=== PATIENT | female | born 1930 | race Caucasian/White ===

== ENCOUNTER 2016-09-04 08:54 | Outpatient (CLI) | payer OTHER ==
[2015-12-02 12:50] VITALS: BP 121/64
[2016-09-04 09:20] LABS: MEAN CORPUSCULAR HEMOGLOBIN 30.4 pg (28.0-34.0); MEAN CORPUSCULAR VOLUME 95.2 fl (80.0-100.0); MONOCYTES % 6.6 % (0.0-11.0)
[2016-09-04 09:21] LABS: EOSINOPHILS % 5.2 % (0.0-6.8); NEUTROPHILS # 2.4 # k/uL (1.4-7.7)
[2016-09-04 09:54] LABS: eGFR (African) > 60; eGFR (Non-African) > 60
== END 2016-09-04 08:55 ==
LOC: LAB 08:54
PROVIDERS: ATTEND Family Medicine
DX: I10 Essential (primary) hypertension (principal); R73.9 Hyperglycemia, unspecified
CPT/HCPCS: 36415; 80053; 83036; 85025

== ENCOUNTER 2016-09-23 13:41 | Outpatient (CLI) | payer OTHER ==
[2015-12-02 12:50] VITALS: BP 121/64
== END 2016-09-23 13:42 ==
LOC: CARD 13:41
PROVIDERS: ATTEND Internal Medicine Cardiovascular Disease
DX: R07.9 Chest pain, unspecified (principal); I10 Essential (primary) hypertension
CPT/HCPCS: 93005; G0463

== ENCOUNTER 2016-10-28 10:58 | Outpatient (CLI) | payer OTHER ==
[2015-12-02 12:50] VITALS: BP 121/64
== END 2016-10-28 12:38 ==
LOC: RT 10:58
PROVIDERS: ATTEND Family Medicine
DX: R55 Syncope and collapse (principal)
CPT/HCPCS: 93270

== ENCOUNTER 2017-09-07 15:36 | Outpatient (CLI) | payer OTHER ==
[2015-12-02 12:50] VITALS: BP 121/64
[2017-09-07 16:32] LABS: eGFR (African) > 60; eGFR (Non-African) > 60
== END 2017-09-07 15:38 ==
LOC: LAB 15:36
PROVIDERS: ATTEND Family Medicine
DX: I10 Essential (primary) hypertension (principal)
CPT/HCPCS: 36415; 80053

== ENCOUNTER 2017-12-28 17:21 | Inpatient (IN) | payer OTHER ==
[2017-12-28] MEDS ORDERED: ALBUTEROL 90MCG/PUFF INHALER IH PRN (18:58)
[2017-12-28 20:03] VITALS: BMI 21.2
[2017-12-28] MEDS: MAGNESIUM OXIDE 400 MG TABLET PO SCH (20:49)
[2017-12-28] MEDS: PROPRANOLOL HCL 20 MG TABLET PO SCH (20:49)
[2017-12-28] MEDS: rOPINIRole HCL 1 MG TABLET PO SCH (20:49)
[2017-12-28] MEDS: traMADol HCL 50 MG TABLET PO PRN (21:02)
[2017-12-29] MEDS: PANTOPRAZOLE SODIUM 40 MG TABLET PO SCH (06:27)
[2017-12-29] MEDS ORDERED: D3 PO SCH (09:00)
[2017-12-29] MEDS ORDERED: CALCIUM CARB PO SCH (09:00)
[2017-12-29] MEDS: LORATADINE 10 MG TABLET PO SCH (09:27)
[2017-12-29] MEDS: HYDROCHLOROTHIAZIDE 25 MG TABLET PO SCH (09:28)
[2017-12-29] MEDS: MULTIVITAMIN 1 EACH TABLET PO SCH (09:28)
[2017-12-29] MEDS: PROPRANOLOL HCL 20 MG TABLET PO SCH ×2 (09:28→20:21)
[2017-12-29] MEDS: POTASSIUM CHLORIDE 10 MEQ TABLET.ER PO SCH (09:28)
[2017-12-29] MEDS: CYANOCOBALAMIN (VITAMIN B12) 1,000 MCG TABLET PO SCH (09:28)
[2017-12-29] MEDS: MAGNESIUM OXIDE 400 MG TABLET PO SCH ×2 (09:28→20:21)
[2017-12-29] MEDS: CLOPIDOGREL BISULFATE 75 MG TABLET PO SCH (09:28)
--- NOTE | 2017-12-29 10:17 | History and Physical Report ---
History of Present Illnes - History of Present Illness Reason for Visit: post surgery for lumbar spinal stenosis History of Present Illness: Patient [id number] white female who problems with her lower back for a number of years. Patient has gone to physical therapy on several occasions and steroid injections without much improvement. Patient was admitted to [facility] for surgical procedures related to her back pain. Patient had a posterior fusion of L2-3, L3-4. Partial lminectomy L2-5 was also done. Patient did not have any intraoperative or postoperative complications. Patient stated her pain has been fairly well controlled. Patient is not had a bowel movement yet. Agustina ent was subsequently transferred to this institution for further rehab services. 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: Other (KIM, RLS, migraine headaches, ) Gastrointestinal: GERD Musculoskeletal: Osteoarthritis Rheumatologic: Fibromyalgia ENT: Other (macular degeneration, decrease hearing acuity, ) - Past Surgical History Past Surgical History: Appendectomy, Cholecystectomy, Hysterectomy, Other (cataract extreaction, Cervical diskectomy, C5-6 fusion, lumpectomy right breast) - Past Social History Smoke: Quit Occupation: retired Alcohol: Occassional Drugs: None Lives: Alone Domestic Violence: Negative - Health Maintenance Health Maintenance: Cholesterol, Influenza Vaccine, Pneumococcal Vaccine, Mammogram Influenza Vaccine: No Pneumonia Vaccine: Yes (Pneumo 2012; Prevnar -2014) Resuscitation Status: Resusciation Status Resuscitation Status Full Code Review of Systems - Review of Systems Constitutional: Weakness. negative: Fever, Chills Eyes: negative: pain, vision change ENT: negative: Ear Pain, Ear Discharge, Nose Pain, Nose Congestion, Mouth Pain, Mouth Swelling, Throat Swelling Respiratory: Cough (mild), Dry. negative: Shortness of Breath, Hemoptysis, SOB with Excertion, Pleuritic Pain, Wheezing Cardiovascular: negative: Chest Pain, Palpitations, Edema, Light Headedness Gastrointestinal: Constipation. negative: Nausea, Vomiting, Abdominal Pain, Diarrhea, Melena, Hematochezia Genitourinary: negative: Dysuria, Frequency, Incontinence, Hematuria Musculoskeletal: negative: Neck Pain, Shoulder Pain, Arm Pain Skin: negative: Rash, Lesions Neurological: negative: Weakness, Numbness, Incoordination - Medications/Allergies Allergies/Adverse Reactions: Allergies Allergy/AdvReac Type Severity Reaction Status Date / Time garlic Allergy Verified 12/02/15 10:18 Penicillins Allergy Verified 12/02/15 10:18 Home Medications: Home Medications Albuterol Sulfate [Proair HFA] 2 inh IH Q6 PRN 12/28/17 Calcium Carb 500/Vit D 200 [CALTRATE WITH VIT D] 12/28/17 Calcium Carb 600Mg/Vit D-3 400 [Caltrate with Vit D-3] 1 each PO DAILY 12/28/17 Cetirizine HCl [All Day Allergy] 10 mg PO D 12/28/17 Cyanocobalamin (Vitamin B-12) [Vitamin B-12] 1,000 mcg PO D 12/28/17 Diclofenac Potassium 50 mg PO BID 12/28/17 Docusate Sodium [Colace] 100 mg PO DAILY PRN 12/28/17 Fexofenadine/Pseudoephedrine [Tiffany-D 24 Hour Tablet] 1 each PO D 12/28/17 Gabapentin 100 mg PO BID 12/28/17 Ginkgo Biloba 120 mg PO D 12/28/17 Hydrochlorothiazide 25 mg PO D 12/28/17 Magnesium Oxide [Magnesium] 250 mg PO BID 12/28/17 Multivit-Minerals/Folic Acid [One Daily Womens 50 Plus Tab] 0.4 mg PO D 12/28/17 Potassium 99 mg PO BID 12/28/17 Current Inpatient Medications: Current Inpatient Medications Albuterol Sulfate (Ventolin Hfa) puff IH Q6 PRN PRN Reason: Wheezing Clopidogrel Bisulfate (Plavix) 75 mg PO DAILY [facility] Last Admin: 12/29/17 09:28 Dose: 75 mg Cyanocobalamin (Vitamin B-12) 1,000 mcg PO D [facility] Last Admin: 12/29/17 09:28 Dose: 1,000 mcg Docusate Sodium (Colace) 100 mg PO DAILY PRN PRN Reason: Constipation Hydrochlorothiazide (Hydrodiuril) 25 mg PO D [facility] Last Admin: 12/29/17 09:28 Dose: 25 mg Loratadine (Claritin) 10 mg PO DAILY [facility] Last Admin: 12/29/17 09:27 Dose: 10 mg Magnesium Oxide (Mag-Oxide) 400 mg PO BID [facility] Last Admin: 12/29/17 09:28 Dose: 400 mg Miscellaneous (Calcium Carb 600mg/Vit D-3 400 [Caltrate With D-3]) 1 each PO DAILY [facility] Multivitamins (Tab-A-Ursula) 1 each PO DAILY [facility] Last Admin: 12/29/17 09:28 Dose: 1 each Pantoprazole Sodium (Protonix) 40 mg PO DAILY [facility] Last Admin: 12/29/17 06:27 Dose: 40 mg Potassium Chloride (Klor-Con 10) 10 meq PO DAILY [facility] Last Admin: 12/29/17 09:28 Dose: 10 meq Propranolol HCl (Inderal) 20 mg PO BID [facility] Last Admin: 12/29/17 09:28 Dose: 20 mg Ropinirole HCl (Requip) 1 mg PO HS [facility] Last Admin: 12/28/17 20:49 Dose: 1 mg Tramadol HCl (Ultram) 50 mg PO QID PRN PRN Reason: PAIN Last Admin: 12/28/17 21:02 Dose: 50 mg Exam - Exam Vital Signs: Vital Signs (72 hours) 12/28/17 17:35 Temperature 97.7 F Pulse Rate [ 92 H Right] Respiratory 17 Rate Blood Pressure 118/58 [Left Arm] O2 Sat by Pulse 98 Oximetry General: Alert, Oriented to Person, Oriented to Place, Oriented to Time, Cooperative, Moderate distress HEENT: Atraumatic, PERRLA, EOMI, Mouth Mucous membr. moist/[place], Nose Mucous membr. moist/[place] Neck: Normal Range of Motion Carotids: WNL Thyroid: WNL Lungs: Clear to auscultation, Normal air movement, Speaks full Sentences Cardiovascular: Regular rate, Normal S1, Normal S2, No murmurs Abdomen: Soft, No tenderness, No hepatospenomegaly, No masses, Other (helaing surgical incision site to lower back. ), Decreased Bowel Sounds Integumentary: Normal, [place], Warm, Dry Extremities: No clubbing, No cyanosis, No edema, Normal pulses, No tenderness/swelling Neurological: Normal speech, Strength Equal Bilat, Normal tone, Sensation intact, Cranial nerves 3-12 NL, Reflexes 2+. No: Normal gait Psych/Mental Status: Mental status NL, Mood NL, Appropriate Affect, Intact Judgment Assessment/Plan - Assessment/Plan (1) Gait disturbance Status: Acute Current Visit: Yes (2) Essential hypertension Status: Acute Current Visit: Yes (3) Fibromyalgia Status: Acute Current Visit: Yes (4) Obstructive sleep apnea Status: Acute Current Visit: Yes (5) Generalized osteoarthritis Status: Acute Current Visit: Yes VTE Assessment - RISK FACTOR SCORE VTE RISK FACTOR SCORES: AGE OVER 60 YEARS, ANTICIPATED BED CONFINEMENT OR IMMOBILIZATION > 24 HOURS, MAJOR SURGERY/ANESTHESIA TIME > 1 HOUR
[2017-12-29 10:53] LABS: eGFR (Non-African) > 60
[2017-12-29] MEDS ORDERED: ALBUTEROL 90MCG/PUFF INHALER IH PRN (11:09)
[2017-12-29] MEDS: CALCIUM/VIT D 500MG/200IU TABLET PO SCH (13:26)
[2017-12-29] MEDS: traMADol HCL 50 MG TABLET PO PRN (20:21)
[2017-12-29] MEDS: rOPINIRole HCL 1 MG TABLET PO SCH (20:21)
[2017-12-29] MEDS: HYDROXYZINE HCL 25 MG TABLET PO PRN (23:24)
[2017-12-30] MEDS: LORATADINE 10 MG TABLET PO SCH (09:53)
[2017-12-30] MEDS: MAGNESIUM OXIDE 400 MG TABLET PO SCH ×2 (09:53→20:00)
[2017-12-30] MEDS: CYANOCOBALAMIN (VITAMIN B12) 1,000 MCG TABLET PO SCH (09:53)
[2017-12-30] MEDS: PROPRANOLOL HCL 20 MG TABLET PO SCH ×2 (09:53→19:58)
[2017-12-30] MEDS: MULTIVITAMIN 1 EACH TABLET PO SCH (09:53)
[2017-12-30] MEDS: CLOPIDOGREL BISULFATE 75 MG TABLET PO SCH (09:53)
[2017-12-30] MEDS: HYDROCHLOROTHIAZIDE 25 MG TABLET PO SCH (09:54)
[2017-12-30] MEDS: PANTOPRAZOLE SODIUM 40 MG TABLET PO SCH (09:54)
[2017-12-30] MEDS: POTASSIUM CHLORIDE 10 MEQ TABLET.ER PO SCH (09:54)
[2017-12-30] MEDS: CALCIUM/VIT D 500MG/200IU TABLET PO SCH (11:21)
[2017-12-30] MEDS: traMADol HCL 50 MG TABLET PO PRN ×2 (11:46→19:44)
[2017-12-30] MEDS: HYDROXYZINE HCL 25 MG TABLET PO PRN (20:00)
[2017-12-30] MEDS: rOPINIRole HCL 1 MG TABLET PO SCH (20:00)
[2017-12-31] MEDS: traMADol HCL 50 MG TABLET PO PRN ×2 (01:57→17:47)
[2017-12-31 06:38] LABS: BASOPHILS % 0.6 (0.0-1.5); EOSINOPHILS % 8.4 % (0.0-6.8); MEAN CORPUSCULAR HEMOGLOBIN 28.7 pg (28.0-34.0); MEAN CORPUSCULAR VOLUME 91.9 fl (80.0-100.0); MONOCYTES % 5.8 % (0.0-11.0)
[2017-12-31 06:39] LABS: NEUTROPHILS # 3.9 # k/uL (1.4-7.7)
[2017-12-31] MEDS: HYDROCHLOROTHIAZIDE 25 MG TABLET PO SCH (09:16)
[2017-12-31] MEDS: PANTOPRAZOLE SODIUM 40 MG TABLET PO SCH (09:16)
[2017-12-31] MEDS: LORATADINE 10 MG TABLET PO SCH (09:16)
[2017-12-31] MEDS: MAGNESIUM OXIDE 400 MG TABLET PO SCH ×2 (09:16→20:01)
[2017-12-31] MEDS: POTASSIUM CHLORIDE 10 MEQ TABLET.ER PO SCH (09:16)
[2017-12-31] MEDS: CYANOCOBALAMIN (VITAMIN B12) 1,000 MCG TABLET PO SCH (09:16)
[2017-12-31] MEDS: CLOPIDOGREL BISULFATE 75 MG TABLET PO SCH (09:16)
[2017-12-31] MEDS: PROPRANOLOL HCL 20 MG TABLET PO SCH ×2 (09:17→20:01)
[2017-12-31] MEDS: MULTIVITAMIN 1 EACH TABLET PO SCH (09:17)
[2017-12-31] MEDS: CALCIUM/VIT D 500MG/200IU TABLET PO SCH (11:43)
[2017-12-31] MEDS ORDERED: MAGNESIUM CITRATE 296 ML BOTTLE PO ONE (13:32)
--- NOTE | 2017-12-31 13:37 | Inpatient Progress Note ---
Subjective - Required Recertification Statement I anticipate X number of days because-include discharge plan: 18 days - Review of Systems Events since last encounter: Patient states that she does seem to be doing some better. Patient has been participating with physical and occupational therapy. Appetite has been fair. Patient does feel constipated. General: Denies: Chills Cardiovascular: Denies: Chest Pain Objective - Exam Vitals and I&O: Vital Signs Temp 97.6 F 12/31/17 09:00 Pulse 103 H 12/31/17 09:00 Resp 20 12/31/17 09:00 BP 142/51 12/31/17 09:00 Pulse Ox 94 12/31/17 09:00 Intake & Output 12/30/17 12/31/17 12/31/17 23:59 11:59 23:59 Intake Total 1200 580 Output Total 3 Balance 1197 580 Weight 49.442 kg Intake: Oral 1200 580 Output: Urine 3 Other: Voiding Method Toilet Toilet # Voids 1 4 General: Alert, Oriented to Person, Oriented to Place, Oriented to Time, Cooperative Lungs: Clear to auscultation, Normal air movement, Speaks full Sentences, Respiratory Distress. No: Wheezes, Rales, Rhonchi Cardiovascular: Regular rate, Normal S1, Normal S2, No murmurs Abdomen: Normal bowel sounds, Soft, No tenderness, No hepatospenomegaly, No masses Skin: Normal, [place], Warm, Dry - Results Results: Laboratory Results WBC 6.33 K/ul (4.00-12.00) 12/31/17 05:50 RBC 2.87 M/ul (3.90-5.20) L 12/31/17 05:50 Hgb 8.2 g/dL (12.0-16.0) L 12/31/17 05:50 Hct 26.4 % (34.5-46.5) L 12/31/17 05:50 MCV 91.9 fl (80.0-100.0) 12/31/17 05:50 MCH 28.7 pg (28.0-34.0) 12/31/17 05:50 MCHC 31.2 g/dL (30.0-36.0) 12/31/17 05:50 RDW 13.5 % (11.3-14.3) 12/31/17 05:50 Plt Count 457 K/mm3 (130-400) H 12/31/17 05:50 Neut % (Auto) 61.3 % (39.0-79.0) 12/31/17 05:50 Lymph % (Auto) 21.4 % (16.0-50.0) 12/31/17 05:50 [place] % (Auto) 5.8 % (0.0-11.0) 12/31/17 05:50 Eos % (Auto) 8.4 % (0.0-6.8) H 12/31/17 05:50 Baso % (Auto) 0.6 (0.0-1.5) 12/31/17 05:50 Neut # (Auto) 3.9 # k/uL (1.4-7.7) 12/31/17 05:50 Lymph # (Auto) 1.4 # k/uL (0.6-4.0) 12/31/17 05:50 [place] # (Auto) 0.4 # k/uL (0.0-0.9) 12/31/17 05:50 Eos # (Auto) 0.5 # k/uL (0.0-0.6) 12/31/17 05:50 Baso # (Auto) 0.0 # k/uL (0.0-0.5) 12/31/17 05:50 Sodium 134 mmol/L (136-145) L 12/29/17 09:34 Potassium 3.4 mmol/L (3.5-5.1) L 12/29/17 09:34 Chloride 94 mmol/L (98-107) L 12/29/17 09:34 Carbon Dioxide 34 mmol/L (22-30) H 12/29/17 09:34 BUN 20 mg/dL (7-17) H 12/29/17 09:34 Creatinine 0.70 mg/dL (0.52-1.04) 12/29/17 09:34 Estimated Creat Clear 50 12/29/17 09:34 Est GFR ( Amer) > 60 (60-) 12/29/17 09:34 Est GFR (Non-Af Amer) > 60 (60-) 12/29/17 09:34 Glucose 120 mg/dL (74-106) H 12/29/17 09:34 Calcium 8.6 mg/dL (8.4-10.2) 12/29/17 09:34 Total Bilirubin 0.2 mg/dL (0.2-1.3) 12/29/17 09:34 AST 22 U/L (15-46) 12/29/17 09:34 ALT 31 U/L (13-69) 12/29/17 09:34 Alkaline Phosphatase 121 U/L (38-126) 12/29/17 09:34 Total Protein 6.0 g/dL (6.3-8.2) L 12/29/17 09:34 Albumin 3.1 g/dL (3.5-5.0) L 12/29/17 09:34 Assessment/Plan - Assessment/Plan (1) Gait disorder Status: Acute Current Visit: Yes Assessment: continue PT and OT (2) Essential hypertension Status: Acute Current Visit: Yes Assessment: continue home meds (3) Constipation by delayed colonic transit Status: Acute Current Visit: Yes Assessment: Patient encouraged to drink a lot of fluids.
[2017-12-31] MEDS: ENOXAPARIN SODIUM 30 MG/0.3 ML DISP.SYRIN SQ SCH (14:51)
[2017-12-31] MEDS: HYDROXYZINE HCL 25 MG TABLET PO PRN (20:01)
[2017-12-31] MEDS: rOPINIRole HCL 1 MG TABLET PO SCH (20:01)
[2018-01-01] MEDS: PANTOPRAZOLE SODIUM 40 MG TABLET PO SCH (08:16)
[2018-01-01] MEDS: DOCUSATE SODIUM 100 MG CAPSULE PO PRN (08:16)
[2018-01-01] MEDS: traMADol HCL 50 MG TABLET PO PRN ×3 (08:16→21:17)
[2018-01-01] MEDS: POTASSIUM CHLORIDE 10 MEQ TABLET.ER PO SCH (08:16)
[2018-01-01] MEDS: MAGNESIUM OXIDE 400 MG TABLET PO SCH ×2 (08:16→21:14)
[2018-01-01] MEDS: CYANOCOBALAMIN (VITAMIN B12) 1,000 MCG TABLET PO SCH (08:17)
[2018-01-01] MEDS: LORATADINE 10 MG TABLET PO SCH (08:17)
[2018-01-01] MEDS: HYDROCHLOROTHIAZIDE 25 MG TABLET PO SCH (08:17)
[2018-01-01] MEDS: CLOPIDOGREL BISULFATE 75 MG TABLET PO SCH (08:17)
[2018-01-01] MEDS: PROPRANOLOL HCL 20 MG TABLET PO SCH ×2 (08:20→21:17)
[2018-01-01] MEDS: MULTIVITAMIN 1 EACH TABLET PO SCH (08:20)
[2018-01-01] MEDS: CALCIUM/VIT D 500MG/200IU TABLET PO SCH (13:16)
[2018-01-01] MEDS: ENOXAPARIN SODIUM 30 MG/0.3 ML DISP.SYRIN SQ SCH (14:13)
[2018-01-01] MEDS: MAGNESIUM HYDROXIDE 400 MG/5 ML 30ML UDC PO PRN (16:24)
[2018-01-01] MEDS: rOPINIRole HCL 1 MG TABLET PO SCH (21:14)
[2018-01-02] MEDS: traMADol HCL 50 MG TABLET PO PRN (07:29)
[2018-01-02] MEDS: PROPRANOLOL HCL 20 MG TABLET PO SCH ×2 (09:48→20:43)
[2018-01-02] MEDS: MAGNESIUM OXIDE 400 MG TABLET PO SCH ×2 (09:48→20:37)
[2018-01-02] MEDS: LORATADINE 10 MG TABLET PO SCH (09:51)
[2018-01-02] MEDS: CLOPIDOGREL BISULFATE 75 MG TABLET PO SCH (09:51)
[2018-01-02] MEDS: POTASSIUM CHLORIDE 10 MEQ TABLET.ER PO SCH (09:51)
[2018-01-02] MEDS: PANTOPRAZOLE SODIUM 40 MG TABLET PO SCH (09:51)
[2018-01-02] MEDS: MULTIVITAMIN 1 EACH TABLET PO SCH (09:51)
[2018-01-02] MEDS: HYDROCHLOROTHIAZIDE 25 MG TABLET PO SCH (09:51)
[2018-01-02] MEDS: CYANOCOBALAMIN (VITAMIN B12) 1,000 MCG TABLET PO SCH (09:51)
[2018-01-02] MEDS: CALCIUM/VIT D 500MG/200IU TABLET PO SCH (13:30)
[2018-01-02] MEDS: ENOXAPARIN SODIUM 30 MG/0.3 ML DISP.SYRIN SQ SCH (14:15)
[2018-01-02] MEDS: rOPINIRole HCL 1 MG TABLET PO SCH (20:37)
[2018-01-03] MEDS: traMADol HCL 50 MG TABLET PO PRN ×3 (06:29→20:04)
[2018-01-03] MEDS: POTASSIUM CHLORIDE 10 MEQ TABLET.ER PO SCH (09:12)
[2018-01-03] MEDS: LORATADINE 10 MG TABLET PO SCH (09:12)
[2018-01-03] MEDS: HYDROCHLOROTHIAZIDE 25 MG TABLET PO SCH (09:12)
[2018-01-03] MEDS: PANTOPRAZOLE SODIUM 40 MG TABLET PO SCH (09:13)
[2018-01-03] MEDS: MAGNESIUM OXIDE 400 MG TABLET PO SCH ×2 (09:13→20:04)
[2018-01-03] MEDS: MULTIVITAMIN 1 EACH TABLET PO SCH (09:13)
[2018-01-03] MEDS: CYANOCOBALAMIN (VITAMIN B12) 1,000 MCG TABLET PO SCH (09:13)
[2018-01-03] MEDS: CLOPIDOGREL BISULFATE 75 MG TABLET PO SCH (09:13)
[2018-01-03] MEDS: PROPRANOLOL HCL 20 MG TABLET PO SCH ×2 (09:14→20:04)
[2018-01-03] MEDS: CALCIUM/VIT D 500MG/200IU TABLET PO SCH (11:39)
[2018-01-03] MEDS: ENOXAPARIN SODIUM 30 MG/0.3 ML DISP.SYRIN SQ SCH (14:20)
[2018-01-03] MEDS: HYDROXYZINE HCL 25 MG TABLET PO PRN (20:04)
[2018-01-03] MEDS: rOPINIRole HCL 1 MG TABLET PO SCH (20:04)
[2018-01-04] MEDS: traMADol HCL 50 MG TABLET PO PRN ×3 (05:37→21:03)
[2018-01-04] MEDS: HYDROCHLOROTHIAZIDE 25 MG TABLET PO SCH (09:05)
[2018-01-04] MEDS: CYANOCOBALAMIN (VITAMIN B12) 1,000 MCG TABLET PO SCH (09:05)
[2018-01-04] MEDS: POTASSIUM CHLORIDE 10 MEQ TABLET.ER PO SCH (09:05)
[2018-01-04] MEDS: PROPRANOLOL HCL 20 MG TABLET PO SCH ×2 (09:05→21:05)
[2018-01-04] MEDS: CLOPIDOGREL BISULFATE 75 MG TABLET PO SCH (09:05)
[2018-01-04] MEDS: PANTOPRAZOLE SODIUM 40 MG TABLET PO SCH (09:05)
[2018-01-04] MEDS: LORATADINE 10 MG TABLET PO SCH (09:05)
[2018-01-04] MEDS: MULTIVITAMIN 1 EACH TABLET PO SCH (09:05)
[2018-01-04] MEDS: MAGNESIUM OXIDE 400 MG TABLET PO SCH ×2 (09:05→21:04)
[2018-01-04] MEDS: CALCIUM/VIT D 500MG/200IU TABLET PO SCH (12:25)
[2018-01-04] MEDS: ENOXAPARIN SODIUM 30 MG/0.3 ML DISP.SYRIN SQ SCH (13:25)
[2018-01-04] MEDS: ACETAMINOPHEN 500 MG TABLET PO PRN (15:21)
[2018-01-04] MEDS: HYDROXYZINE HCL 25 MG TABLET PO PRN (21:03)
[2018-01-04] MEDS: rOPINIRole HCL 1 MG TABLET PO SCH (21:04)
[2018-01-05] MEDS: LORATADINE 10 MG TABLET PO SCH (09:05)
[2018-01-05] MEDS: MAGNESIUM OXIDE 400 MG TABLET PO SCH ×2 (09:05→20:48)
[2018-01-05] MEDS: CLOPIDOGREL BISULFATE 75 MG TABLET PO SCH (09:05)
[2018-01-05] MEDS: PANTOPRAZOLE SODIUM 40 MG TABLET PO SCH (09:05)
[2018-01-05] MEDS: MULTIVITAMIN 1 EACH TABLET PO SCH (09:05)
[2018-01-05] MEDS: CYANOCOBALAMIN (VITAMIN B12) 1,000 MCG TABLET PO SCH (09:05)
[2018-01-05] MEDS: HYDROCHLOROTHIAZIDE 25 MG TABLET PO SCH (09:05)
[2018-01-05] MEDS: POTASSIUM CHLORIDE 10 MEQ TABLET.ER PO SCH (09:06)
[2018-01-05] MEDS: PROPRANOLOL HCL 20 MG TABLET PO SCH ×2 (09:07→20:48)
[2018-01-05] MEDS: CALCIUM/VIT D 500MG/200IU TABLET PO SCH (12:35)
[2018-01-05] MEDS: ENOXAPARIN SODIUM 30 MG/0.3 ML DISP.SYRIN SQ SCH (14:39)
[2018-01-05] MEDS: traMADol HCL 50 MG TABLET PO PRN (17:52)
[2018-01-05] MEDS: HYDROXYZINE HCL 25 MG TABLET PO PRN (20:48)
[2018-01-05] MEDS: rOPINIRole HCL 1 MG TABLET PO SCH (20:48)
[2018-01-05] MEDS: ACETAMINOPHEN 500 MG TABLET PO PRN (20:48)
[2018-01-06] MEDS: POTASSIUM CHLORIDE 10 MEQ TABLET.ER PO SCH (09:45)
[2018-01-06] MEDS: HYDROCHLOROTHIAZIDE 25 MG TABLET PO SCH (09:45)
[2018-01-06] MEDS: MAGNESIUM OXIDE 400 MG TABLET PO SCH ×2 (09:45→20:29)
[2018-01-06] MEDS: traMADol HCL 50 MG TABLET PO PRN ×2 (09:45→20:33)
[2018-01-06] MEDS: MULTIVITAMIN 1 EACH TABLET PO SCH (09:46)
[2018-01-06] MEDS: PROPRANOLOL HCL 20 MG TABLET PO SCH ×2 (09:46→20:33)
[2018-01-06] MEDS: CLOPIDOGREL BISULFATE 75 MG TABLET PO SCH (09:46)
[2018-01-06] MEDS: PANTOPRAZOLE SODIUM 40 MG TABLET PO SCH (09:46)
[2018-01-06] MEDS: CYANOCOBALAMIN (VITAMIN B12) 1,000 MCG TABLET PO SCH (09:46)
[2018-01-06] MEDS: LORATADINE 10 MG TABLET PO SCH (09:46)
[2018-01-06] MEDS: ENOXAPARIN SODIUM 30 MG/0.3 ML DISP.SYRIN SQ SCH (12:43)
[2018-01-06] MEDS: CALCIUM/VIT D 500MG/200IU TABLET PO SCH (12:43)
[2018-01-06] MEDS: rOPINIRole HCL 1 MG TABLET PO SCH (20:29)
[2018-01-06] MEDS: HYDROXYZINE HCL 25 MG TABLET PO PRN (20:33)
[2018-01-06] MEDS: ACETAMINOPHEN 500 MG TABLET PO PRN (20:33)
--- NOTE | 2018-01-07 08:00 | Inpatient Progress Note ---
Subjective - Required Recertification Statement I anticipate X number of days because-include discharge plan: 10 days - Review of Systems Events since last encounter: Patient seemed to be doing very well. Patient is participating with physical and occupational therapy well. Patient is highly motivated to get better. Appetite has been stable. Patient states she has been having bowel movements without difficulties. Patient denies any nausea vomiting. Pain associated with her josue rgical procedure appeared to be well controlled at this time. Objective - Exam Vitals and I&O: Vital Signs Temp 97.6 F 01/06/18 20:56 Pulse 90 01/06/18 21:00 Resp 16 01/06/18 21:00 BP 129/53 01/06/18 20:56 Pulse Ox 96 01/06/18 20:56 Intake & Output 01/06/18 01/06/18 01/07/18 11:59 23:59 11:59 Intake Total 520 1000 120 Balance 520 1000 120 Intake: Oral 520 1000 120 Other: Voiding Method Toilet Toilet # Voids 2 1 2 General: Alert, Oriented to Person, Oriented to Place, Oriented to Time, Cooperative Neck: Supple, No JVD Lungs: Clear to auscultation, Normal air movement, Speaks full Sentences. No: Rales, Rhonchi Cardiovascular: Regular rate, Normal S1, Normal S2 Abdomen: Normal bowel sounds, Soft, No tenderness Extremities: No clubbing, No cyanosis, No edema Skin: Normal, [place], Warm, Dry, Other (incision site is clean and dry) Psych/Mental Status: Mental status NL, Mood NL, Appropriate Affect - Results Results: Laboratory Results WBC 6.33 K/ul (4.00-12.00) 12/31/17 05:50 RBC 2.87 M/ul (3.90-5.20) L 12/31/17 05:50 Hgb 8.2 g/dL (12.0-16.0) L 12/31/17 05:50 Hct 26.4 % (34.5-46.5) L 12/31/17 05:50 MCV 91.9 fl (80.0-100.0) 12/31/17 05:50 MCH 28.7 pg (28.0-34.0) 12/31/17 05:50 MCHC 31.2 g/dL (30.0-36.0) 12/31/17 05:50 RDW 13.5 % (11.3-14.3) 12/31/17 05:50 Plt Count 457 K/mm3 (130-400) H 12/31/17 05:50 Neut % (Auto) 61.3 % (39.0-79.0) 12/31/17 05:50 Lymph % (Auto) 21.4 % (16.0-50.0) 12/31/17 05:50 [place] % (Auto) 5.8 % (0.0-11.0) 12/31/17 05:50 Eos % (Auto) 8.4 % (0.0-6.8) H 12/31/17 05:50 Baso % (Auto) 0.6 (0.0-1.5) 12/31/17 05:50 Neut # (Auto) 3.9 # k/uL (1.4-7.7) 12/31/17 05:50 Lymph # (Auto) 1.4 # k/uL (0.6-4.0) 12/31/17 05:50 [place] # (Auto) 0.4 # k/uL (0.0-0.9) 12/31/17 05:50 Eos # (Auto) 0.5 # k/uL (0.0-0.6) 12/31/17 05:50 Baso # (Auto) 0.0 # k/uL (0.0-0.5) 12/31/17 05:50 Sodium 134 mmol/L (136-145) L 12/29/17 09:34 Potassium 3.4 mmol/L (3.5-5.1) L 12/29/17 09:34 Chloride 94 mmol/L (98-107) L 12/29/17 09:34 Carbon Dioxide 34 mmol/L (22-30) H 12/29/17 09:34 BUN 20 mg/dL (7-17) H 12/29/17 09:34 Creatinine 0.70 mg/dL (0.52-1.04) 12/29/17 09:34 Estimated Creat Clear 50 12/29/17 09:34 Est GFR ( Amer) > 60 (60-) 12/29/17 09:34 Est GFR (Non-Af Amer) > 60 (60-) 12/29/17 09:34 Glucose 120 mg/dL (74-106) H 12/29/17 09:34 Calcium 8.6 mg/dL (8.4-10.2) 12/29/17 09:34 Total Bilirubin 0.2 mg/dL (0.2-1.3) 12/29/17 09:34 AST 22 U/L (15-46) 12/29/17 09:34 ALT 31 U/L (13-69) 12/29/17 09:34 Alkaline Phosphatase 121 U/L (38-126) 12/29/17 09:34 Total Protein 6.0 g/dL (6.3-8.2) L 12/29/17 09:34 Albumin 3.1 g/dL (3.5-5.0) L 12/29/17 09:34 Assessment/Plan - Assessment/Plan (1) Gait disorder Status: Acute Current Visit: Yes Assessment: improving (2) Essential hypertension Status: Acute Current Visit: Yes Assessment: stable (3) Constipation by delayed colonic transit Status: Acute Current Visit: Yes Assessment: stable
[2018-01-07] MEDS: MULTIVITAMIN 1 EACH TABLET PO SCH (09:08)
[2018-01-07] MEDS: CLOPIDOGREL BISULFATE 75 MG TABLET PO SCH (09:08)
[2018-01-07] MEDS: HYDROCHLOROTHIAZIDE 25 MG TABLET PO SCH (09:08)
[2018-01-07] MEDS: CYANOCOBALAMIN (VITAMIN B12) 1,000 MCG TABLET PO SCH (09:08)
[2018-01-07] MEDS: MAGNESIUM OXIDE 400 MG TABLET PO SCH ×2 (09:08→20:21)
[2018-01-07] MEDS: LORATADINE 10 MG TABLET PO SCH (09:08)
[2018-01-07] MEDS: PANTOPRAZOLE SODIUM 40 MG TABLET PO SCH (09:08)
[2018-01-07] MEDS: PROPRANOLOL HCL 20 MG TABLET PO SCH ×2 (09:09→20:22)
[2018-01-07] MEDS: POTASSIUM CHLORIDE 10 MEQ TABLET.ER PO SCH (09:09)
[2018-01-07] MEDS: CALCIUM/VIT D 500MG/200IU TABLET PO SCH (12:28)
[2018-01-07] MEDS: ENOXAPARIN SODIUM 30 MG/0.3 ML DISP.SYRIN SQ SCH (13:54)
[2018-01-07] MEDS: HYDROXYZINE HCL 25 MG TABLET PO PRN (20:21)
[2018-01-07] MEDS: traMADol HCL 50 MG TABLET PO PRN (20:21)
[2018-01-07] MEDS: rOPINIRole HCL 1 MG TABLET PO SCH (20:21)
[2018-01-08] MEDS: traMADol HCL 50 MG TABLET PO PRN ×2 (03:29→14:28)
[2018-01-08] MEDS: LORATADINE 10 MG TABLET PO SCH (09:37)
[2018-01-08] MEDS: CLOPIDOGREL BISULFATE 75 MG TABLET PO SCH (09:37)
[2018-01-08] MEDS: PANTOPRAZOLE SODIUM 40 MG TABLET PO SCH (09:37)
[2018-01-08] MEDS: CYANOCOBALAMIN (VITAMIN B12) 1,000 MCG TABLET PO SCH (09:37)
[2018-01-08] MEDS: POTASSIUM CHLORIDE 10 MEQ TABLET.ER PO SCH (09:37)
[2018-01-08] MEDS: MAGNESIUM OXIDE 400 MG TABLET PO SCH ×2 (09:37→21:38)
[2018-01-08] MEDS: HYDROCHLOROTHIAZIDE 25 MG TABLET PO SCH (09:37)
[2018-01-08] MEDS: PROPRANOLOL HCL 20 MG TABLET PO SCH ×2 (09:37→21:38)
[2018-01-08] MEDS: MULTIVITAMIN 1 EACH TABLET PO SCH (09:38)
[2018-01-08] MEDS: CALCIUM/VIT D 500MG/200IU TABLET PO SCH (12:28)
[2018-01-08] MEDS: ENOXAPARIN SODIUM 30 MG/0.3 ML DISP.SYRIN SQ SCH (14:26)
[2018-01-08] MEDS: rOPINIRole HCL 1 MG TABLET PO SCH (21:38)
[2018-01-09] MEDS: traMADol HCL 50 MG TABLET PO PRN ×2 (08:48→20:21)
[2018-01-09] MEDS: PROPRANOLOL HCL 20 MG TABLET PO SCH ×2 (08:48→20:22)
[2018-01-09] MEDS: LORATADINE 10 MG TABLET PO SCH (08:48)
[2018-01-09] MEDS: HYDROCHLOROTHIAZIDE 25 MG TABLET PO SCH (08:49)
[2018-01-09] MEDS: POTASSIUM CHLORIDE 10 MEQ TABLET.ER PO SCH (08:49)
[2018-01-09] MEDS: MAGNESIUM OXIDE 400 MG TABLET PO SCH ×2 (08:50→20:22)
[2018-01-09] MEDS: DOCUSATE SODIUM 100 MG CAPSULE PO PRN (08:50)
[2018-01-09] MEDS: CLOPIDOGREL BISULFATE 75 MG TABLET PO SCH (08:50)
[2018-01-09] MEDS: PANTOPRAZOLE SODIUM 40 MG TABLET PO SCH (08:51)
[2018-01-09] MEDS: MULTIVITAMIN 1 EACH TABLET PO SCH (08:51)
[2018-01-09] MEDS: CYANOCOBALAMIN (VITAMIN B12) 1,000 MCG TABLET PO SCH (08:52)
[2018-01-09] MEDS: CALCIUM/VIT D 500MG/200IU TABLET PO SCH (11:54)
[2018-01-09] MEDS: ENOXAPARIN SODIUM 30 MG/0.3 ML DISP.SYRIN SQ SCH (12:47)
[2018-01-09] MEDS: HYDROXYZINE HCL 25 MG TABLET PO PRN (20:21)
[2018-01-09] MEDS: rOPINIRole HCL 1 MG TABLET PO SCH (20:22)
[2018-01-10] MEDS: LORATADINE 10 MG TABLET PO SCH (08:52)
[2018-01-10] MEDS: CYANOCOBALAMIN (VITAMIN B12) 1,000 MCG TABLET PO SCH (08:52)
[2018-01-10] MEDS: CLOPIDOGREL BISULFATE 75 MG TABLET PO SCH (08:52)
[2018-01-10] MEDS: POTASSIUM CHLORIDE 10 MEQ TABLET.ER PO SCH (08:52)
[2018-01-10] MEDS: MULTIVITAMIN 1 EACH TABLET PO SCH (08:52)
[2018-01-10] MEDS: MAGNESIUM OXIDE 400 MG TABLET PO SCH ×2 (08:52→20:32)
[2018-01-10] MEDS: HYDROCHLOROTHIAZIDE 25 MG TABLET PO SCH (08:52)
[2018-01-10] MEDS: PROPRANOLOL HCL 20 MG TABLET PO SCH ×2 (08:52→20:32)
[2018-01-10] MEDS: PANTOPRAZOLE SODIUM 40 MG TABLET PO SCH (08:52)
[2018-01-10] MEDS: traMADol HCL 50 MG TABLET PO PRN ×2 (11:37→20:32)
[2018-01-10] MEDS: CALCIUM/VIT D 500MG/200IU TABLET PO SCH (11:37)
[2018-01-10] MEDS: ENOXAPARIN SODIUM 30 MG/0.3 ML DISP.SYRIN SQ SCH (14:43)
[2018-01-10] MEDS: rOPINIRole HCL 1 MG TABLET PO SCH (20:32)
[2018-01-11] MEDS: PROPRANOLOL HCL 20 MG TABLET PO SCH ×2 (08:35→20:19)
[2018-01-11] MEDS: MULTIVITAMIN 1 EACH TABLET PO SCH (08:35)
[2018-01-11] MEDS: DOCUSATE SODIUM 100 MG CAPSULE PO PRN (08:35)
[2018-01-11] MEDS: MAGNESIUM OXIDE 400 MG TABLET PO SCH ×2 (08:35→20:17)
[2018-01-11] MEDS: CLOPIDOGREL BISULFATE 75 MG TABLET PO SCH (08:36)
[2018-01-11] MEDS: PANTOPRAZOLE SODIUM 40 MG TABLET PO SCH (08:36)
[2018-01-11] MEDS: POTASSIUM CHLORIDE 10 MEQ TABLET.ER PO SCH (08:36)
[2018-01-11] MEDS: HYDROCHLOROTHIAZIDE 25 MG TABLET PO SCH (08:36)
[2018-01-11] MEDS: LORATADINE 10 MG TABLET PO SCH (08:36)
[2018-01-11] MEDS: CYANOCOBALAMIN (VITAMIN B12) 1,000 MCG TABLET PO SCH (08:36)
[2018-01-11] MEDS: ACETAMINOPHEN 500 MG TABLET PO PRN (08:38)
[2018-01-11] MEDS: CALCIUM/VIT D 500MG/200IU TABLET PO SCH (11:28)
[2018-01-11] MEDS: ENOXAPARIN SODIUM 30 MG/0.3 ML DISP.SYRIN SQ SCH (15:10)
[2018-01-11] MEDS: MAGNESIUM HYDROXIDE 400 MG/5 ML 30ML UDC PO PRN (18:26)
[2018-01-11] MEDS: traMADol HCL 50 MG TABLET PO PRN (20:17)
[2018-01-11] MEDS: rOPINIRole HCL 1 MG TABLET PO SCH (20:17)
[2018-01-11] MEDS: HYDROXYZINE HCL 25 MG TABLET PO PRN (20:18)
[2018-01-12] MEDS: PANTOPRAZOLE SODIUM 40 MG TABLET PO SCH (06:05)
[2018-01-12] MEDS: MULTIVITAMIN 1 EACH TABLET PO SCH (09:12)
[2018-01-12] MEDS: CYANOCOBALAMIN (VITAMIN B12) 1,000 MCG TABLET PO SCH (09:12)
[2018-01-12] MEDS: ACETAMINOPHEN 500 MG TABLET PO PRN ×2 (09:12→20:56)
[2018-01-12] MEDS: MAGNESIUM OXIDE 400 MG TABLET PO SCH ×2 (09:12→20:56)
[2018-01-12] MEDS: CLOPIDOGREL BISULFATE 75 MG TABLET PO SCH (09:12)
[2018-01-12] MEDS: traMADol HCL 50 MG TABLET PO PRN ×2 (09:12→20:56)
[2018-01-12] MEDS: POTASSIUM CHLORIDE 10 MEQ TABLET.ER PO SCH (09:13)
[2018-01-12] MEDS: LORATADINE 10 MG TABLET PO SCH (09:13)
[2018-01-12] MEDS: HYDROCHLOROTHIAZIDE 25 MG TABLET PO SCH (09:13)
[2018-01-12] MEDS: PROPRANOLOL HCL 20 MG TABLET PO SCH ×2 (09:13→20:53)
[2018-01-12] MEDS: ENOXAPARIN SODIUM 30 MG/0.3 ML DISP.SYRIN SQ SCH (13:10)
[2018-01-12] MEDS: CALCIUM/VIT D 500MG/200IU TABLET PO SCH (13:10)
[2018-01-12] MEDS: rOPINIRole HCL 1 MG TABLET PO SCH (20:56)
[2018-01-12] MEDS: HYDROXYZINE HCL 25 MG TABLET PO PRN (20:56)
[2018-01-13] MEDS: PANTOPRAZOLE SODIUM 40 MG TABLET PO SCH (06:08)
[2018-01-13] MEDS: ACETAMINOPHEN 500 MG TABLET PO PRN (06:30)
[2018-01-13] MEDS: LORATADINE 10 MG TABLET PO SCH (08:06)
[2018-01-13] MEDS: PROPRANOLOL HCL 20 MG TABLET PO SCH ×2 (08:07→20:26)
[2018-01-13] MEDS: HYDROCHLOROTHIAZIDE 25 MG TABLET PO SCH (08:07)
[2018-01-13] MEDS: POTASSIUM CHLORIDE 10 MEQ TABLET.ER PO SCH (08:07)
[2018-01-13] MEDS: MULTIVITAMIN 1 EACH TABLET PO SCH (08:08)
[2018-01-13] MEDS: CLOPIDOGREL BISULFATE 75 MG TABLET PO SCH (08:08)
[2018-01-13] MEDS: MAGNESIUM OXIDE 400 MG TABLET PO SCH ×2 (08:08→20:26)
[2018-01-13] MEDS: CYANOCOBALAMIN (VITAMIN B12) 1,000 MCG TABLET PO SCH (08:09)
[2018-01-13] MEDS: ENOXAPARIN SODIUM 30 MG/0.3 ML DISP.SYRIN SQ SCH (12:56)
[2018-01-13] MEDS: CALCIUM/VIT D 500MG/200IU TABLET PO SCH (12:56)
[2018-01-13] MEDS: rOPINIRole HCL 1 MG TABLET PO SCH (20:26)
[2018-01-13] MEDS: traMADol HCL 50 MG TABLET PO PRN (20:26)
[2018-01-13] MEDS: HYDROXYZINE HCL 25 MG TABLET PO PRN (20:26)
--- NOTE | 2018-01-14 08:34 | Discharge Summary ---
Discharge Summary - Discharge Sumary History of Present Illness: Patient 87 year-old white female who problems with her lower back for a number of years. Patient has gone to physical therapy on several occasions and steroid injections without much improvement. Patient was admitted to [facility] for surgical procedures related to her back pain. Patient had a posterior fusion of L2-3, L3-4. Partial lminectomy L2-5 was also done. Patient did not have any intraoperative or postoperative complications. Patient stated her pain has been fairly well controlled. Patient is not had a bowel movement yet. Patient was subsequently transferred to this institution for further rehab services. Condition at Discharge: Stable Home Medications: Ambulatory Orders Medication Instructions Recorded Albuterol Sulfate [Proair HFA] 2 inh IH Q6 PRN 12/28/17 Calcium Carb 500/Vit D 200 1 tab PO BID 12/28/17 [CALTRATE WITH VIT D] Cetirizine HCl [All Day Allergy] 10 mg PO D 12/28/17 Cyanocobalamin (Vitamin B-12) 1,000 mcg PO D 12/28/17 [Vitamin B-12] Diclofenac Potassium 50 mg PO BID 12/28/17 Docusate Sodium [Colace] 100 mg PO DAILY PRN 12/28/17 Gabapentin 100 mg PO BID 12/28/17 Ginkgo Biloba 120 mg PO D 12/28/17 Hydrochlorothiazide 25 mg PO D 12/28/17 Magnesium Oxide [Magnesium] 250 mg PO BID 12/28/17 Multivit-Minerals/Folic Acid [One 0.4 mg PO D 12/28/17 Daily Womens 50 Plus Tab] Potassium 99 mg PO BID 12/28/17 Pantoprazole Sodium [Protonix] 40 mg PO 717 01/13/18 Acetaminophen [Tylenol Extra 500 mg PO Q4 PRN tablet 01/14/18 Strength] Fexofenadine/Pseudoephedrine 1 each PO D PRN #0 01/14/18 [Tiffany-D 24 Hour Tablet] Magnesium Hydroxide [Milk of 2,400 mg PO DAILY PRN unit dose 01/14/18 Magnesia] cup Consultations this Visit: None Procedures this Visit: None Allergies/Adverse Reactions: Allergies Allergy/AdvReac Type Severity Reaction Status Date / Time garlic Allergy Verified 01/13/18 02:59 Penicillins Allergy Verified 01/13/18 02:59 Discharge Summary: Patient was started on physical and occupational therapy. Patient was highly motivated and did extremely well with her therapy. Patient was able to make the market improvement in her ability to ambulate and transfer safely. Patient other chronic medical problems remain stable on home medications. At the time of dismissal was felt that the patient was stable enough that she could be dismissed home safely and be continued with home health physical therapy. - Final Diagnosis (1) Gait disorder Problems: improved (2) Essential hypertension Problems: Stable on home medications. (3) Constipation by delayed colonic transit Problems: improved
[2018-01-14] MEDS: HYDROCHLOROTHIAZIDE 25 MG TABLET PO SCH (09:27)
[2018-01-14] MEDS: MAGNESIUM OXIDE 400 MG TABLET PO SCH (09:27)
[2018-01-14] MEDS: POTASSIUM CHLORIDE 10 MEQ TABLET.ER PO SCH (09:27)
[2018-01-14] MEDS: CLOPIDOGREL BISULFATE 75 MG TABLET PO SCH (09:27)
[2018-01-14] MEDS: CYANOCOBALAMIN (VITAMIN B12) 1,000 MCG TABLET PO SCH (09:27)
[2018-01-14] MEDS: PROPRANOLOL HCL 20 MG TABLET PO SCH (09:28)
[2018-01-14] MEDS: PANTOPRAZOLE SODIUM 40 MG TABLET PO SCH (09:28)
[2018-01-14] MEDS: LORATADINE 10 MG TABLET PO SCH (09:28)
[2018-01-14] MEDS: MULTIVITAMIN 1 EACH TABLET PO SCH (09:28)
[2018-01-14] MEDS: traMADol HCL 50 MG TABLET PO PRN (09:30)
[2018-01-14 10:12] VITALS: BP 133/47
[2018-01-14] MEDS: CALCIUM/VIT D 500MG/200IU TABLET PO SCH (12:53)
== END 2018-01-14 12:30 | disposition home health service (06) | DRG 93 ==
LOC: UNDOADMIN 17:21 → SOUTH 17:21
PROVIDERS: ADMIT Family Medicine; ATTEND Family Medicine
DX: R26.89 Other abnormalities of gait and mobility (principal); M79.7 Fibromyalgia; I10 Essential (primary) hypertension; M15.9 Polyosteoarthritis, unspecified; G47.33 Obstructive sleep apnea (adult) (pediatric); K59.01 Slow transit constipation
CPT/HCPCS: 36415; 80053; 85025; 97110; 97112; 97116; 97161; 97165; 97530; 97535; J1650

== ENCOUNTER 2018-02-21 15:53 | Inpatient (IN) | payer OTHER ==
--- NOTE | 2018-02-21 16:04 | ED Physician Documentation ---
General Adult - HISTORIAN Historian: patient, other (family member) - HPI Stated Complaint: weakness, falls Chief Complaint: General Adult Onset: days ago Timing: still present Severity: moderate Further Comments: yes (Pt is an 87 yo female who reports that she has fallen more than 6 times today. Pt states that she ate ham and beans on Thursday, 6 days ago, and again on Thursday. She thinks the food may have gone bad on Thursday and she developed nausea and vomiting, which she had for 2 days. Pt took laxatives and then developed diarrhea. She also had her propranolol changed recently from 20 mg to 10 mg qd and she had been taken off HCTZ because her bp was lower than it had been, but pt found some high readings at home with sbp in 140's and restarted HCTZ on her own. Pt uses a walker and did not injure herself in the falls. Pt fell in the [facility] lobby while approching the window with her walker. Pt did not strike her head or injure herself in this fall.) - ROS CONST: weakness EYES/ENT: none CVS/RESP: none GI/: none MS/SKIN/LYMPH: none NEURO/PSYCH: fainting, dizziness - PAST HX Past History: other (KIM, RLS, Migraines, hx HTN, GERD, OA, Fibromyalgia, macular degeneration, hearing loss) Surgeries/Procedures: other (back surgery in December 2017, appendectomy, cholecystectomy, hysterectomy, cateracs, cervical diskectomy, C-5-6 fusion, lumpectomy R breast.) Allergies/Adverse Reactions: Allergies Allergy/AdvReac Type Severity Reaction Status Date / Time garlic Allergy Verified 02/21/18 16:21 Penicillins Allergy Verified 02/21/18 16:21 Home Medications: Ambulatory Orders Medication Instructions Recorded Albuterol Sulfate [Proair HFA] 2 inh IH Q6 PRN 12/28/17 Calcium Carb 500/Vit D 200 1 tab PO BID 12/28/17 [CALTRATE WITH VIT D] Cetirizine HCl [All Day Allergy] 10 mg PO D 12/28/17 Cyanocobalamin (Vitamin B-12) 1,000 mcg PO D 12/28/17 [Vitamin B-12] Diclofenac Potassium 50 mg PO BID 12/28/17 Docusate Sodium [Colace] 100 mg PO DAILY PRN 12/28/17 Gabapentin 100 mg PO BID 12/28/17 Ginkgo Biloba 120 mg PO D 12/28/17 Magnesium Oxide [Magnesium] 250 mg PO BID 12/28/17 Multivit-Minerals/Folic Acid [One 0.4 mg PO D 12/28/17 Daily Womens 50 Plus Tab] Potassium 99 mg PO BID 12/28/17 Pantoprazole Sodium [Protonix] 40 mg PO 717 01/13/18 Acetaminophen [Tylenol Extra 500 mg PO Q4 PRN tablet 01/14/18 Strength] Magnesium Hydroxide [Milk of 2,400 mg PO DAILY PRN unit dose 01/14/18 Magnesia] cup Fexofenadine/Pseudoephedrine 1 each PO BID 02/21/18 [Tiffany-D 24 Hour Tablet] Propranolol HCl [Inderal] 10 mg PO BID 02/21/18 - SOCIAL HX Smoking History: quit greater than 1 year - FAMILY HX Family History: No - VITAL SIGNS Vital Signs: Vital Signs Temp Pulse Resp BP Pulse Ox 120/52 01/14/18 09:00 - REVIEWED ASSESSMENTS Nursing Assessment Reviewed: Yes Vitals Reviewed: Yes Progress - Progress Progress: CXR: Normal heart shadow and mediastinum. Mild degree of pulmonary emphysema. No acute infiltrates or pleural effusion. Impression: Mild pulmonary emphysema without acute infiltrate or pleural effusion. NS 1 L IVF admit to Dr. Novoa. - EKG/XRAY/CT EKG: NSR (HR=79; normal axis; normal IN interval; non-specific T-wave abnormality.) General Adult Physical Exam - PHYSICAL EXAM GENERAL APPEARANCE: mild distress EENT: dry mucous membranes NECK: normal inspection, supple RESPIRATORY: no resp distress, chest non-tender, breath sounds normal CVS: reg rate & rhythm, heart sounds normal ABDOMEN: soft, no organomegaly, normal bowel sounds SKIN: warm/dry, normal color, other (tenting of skin) EXTREMITIES: non-tender, normal range of motion, no edema NEURO: oriented X3, motor nml, sensation nml Discharge Clincal Impression: Dehydration, elevated BUN, elevated creatinine, anemia, elevated Troponin T, frequent falls Referrals: Chico Alvarez MD [Primary Care Provider] - Condition: Stable Disposition: ADMITTED INPATIENT Decision to Admit: NO Decision Time: 19:39
[2018-02-21] MEDS ORDERED: 0.9 % SODIUM CHLORIDE 500 ML IV ONE ×2 (16:09→17:38)
[2018-02-21 16:16] LABS: MEAN CORPUSCULAR HEMOGLOBIN 24.5 pg (28.0-34.0)
[2018-02-21 16:17] LABS: BASOPHILS % 0.5 (0.0-1.5); EOSINOPHILS % 2.4 % (0.0-6.8); MONOCYTES % 10.5 % (0.0-11.0); NEUTROPHILS # 12.4 # k/uL (1.4-7.7)
[2018-02-21 16:34] LABS: eGFR (Non-African) 11
--- NOTE | 2018-02-21 17:42 | Diagnostic Imaging Report ---
FLOR SIER[facility] [address] [facility] [address] [address] Report Submission Date: Feb 21, 2018 4:40:39 PM CDT Patient Study Name: BHANU BACON Date: Feb 21, 2018 4:19:36 PM CDT Modality Type: DX Gender: F Description: CHEST : [birth year] Institution: [facility] Physician: FLOR SIERRA Chest AP portable at 1619 hours of February 21, 2018 Clinical history: Dyspnea Normal heart shadow and mediastinum. Mild degree of pulmonary emphysema. No acute infiltrates or pleural effusion. Impression: Mild pulmonary emphysema without acute infiltrate or pleural effusion Electronically signed on Feb 21, 2018 4:40:39 PM CDT by: Chico FULTON
[2018-02-21 18:02] LABS: TROPONIN T 0.049 ng/mL (<0.010)
[2018-02-21] MEDS ORDERED: DOCUSATE SODIUM 100 MG CAPSULE PO PRN (19:50)
[2018-02-21] MEDS ORDERED: ALBUTEROL 90MCG/PUFF INHALER IH PRN (19:50)
[2018-02-21 21:20] VITALS: BMI 24.6
[2018-02-21] MEDS: GABAPENTIN 100 MG CAPSULE PO SCH (21:28)
[2018-02-21] MEDS: 0.9 % SODIUM CHLORIDE 1,000 ML IV SCH (21:28)
[2018-02-21] MEDS: rOPINIRole HCL 1 MG TABLET PO SCH (21:29)
--- NOTE | 2018-02-21 21:40 | History and Physical Report ---
History of Present Illnes - History of Present Illness Reason for Visit: Dehydration, acute renal failure, hypotension, falls History of Present Illness: This is an 87 year old female patient of Dr. Casas who has been having nausea and vomiting all week. She had eaten some beans on Thursday that she thought may have gone bad and since then she has been having nausea, which is improved. She had been told to stop her HCTZ due to hypotension, however she restarted it again when she noted some high blood pressures at home. She also has taken some laxatives. She has had several falls, including one as she arrived to the ER, and another in her room just now. She has not incurred any injuries with these falls. She is not having any fever or chills, but generally feels weak. She had 1500cc of fluids in the ER and she says that this has caused her to feel better. Her labs show a BUN of 55 and creatinine of 4 (normal two months ago), and her hemoglobin is 9.1 with a markedly low MCV suggesting iron deficiency anemia. I suspect that after hydration, she may need to be transfused. Labs ar ordered for tomorrow. - Past Medical History Cardiac: HTN [employer]: TIA, Other (KIM, RLS, migraine headaches, ) Gastrointestinal: GERD Musculoskeletal: Osteoarthritis Rheumatologic: Fibromyalgia ENT: Other (macular degeneration, decrease hearing acuity, ) - Past Surgical History Past Surgical History: Appendectomy, Cholecystectomy, Hysterectomy, Other (cataract extreaction, Cervical diskectomy, C5-6 fusion, lumpectomy right breast) - Past Social History Smoke: Quit Occupation: retired Alcohol: Occassional Drugs: None Lives: Alone Domestic Violence: Negative - Health Maintenance Health Maintenance: Cholesterol, Influenza Vaccine, Pneumococcal Vaccine, Mammogram Pneumonia Vaccine: Yes Resuscitation Status: Resusciation Status Resuscitation Status Full Code - Unable to Obtain History Unable to Obtain: No Review of Systems - Review of Systems Constitutional: Weakness. negative: Fever, Chills, Sweats Eyes: negative: pain, vision change ENT: negative: Ear Pain, Ear Discharge, Nose Pain Respiratory: Shortness of Breath. negative: Cough, Dry Cardiovascular: negative: Chest Pain, Palpitations Gastrointestinal: Nausea, Vomiting, Diarrhea. negative: Abdominal Pain Genitourinary: negative: Dysuria, Frequency Musculoskeletal: negative: Neck Pain, Shoulder Pain Skin: negative: Rash, Lesions, Jaundice Neurological: Weakness. negative: Change in Speech, Confusion - Medications/Allergies Allergies/Adverse Reactions: Allergies Allergy/AdvReac Type Severity Reaction Status Date / Time garlic Allergy Verified 02/21/18 16:21 Penicillins Allergy Verified 02/21/18 16:21 Home Medications: Home Medications Fexofenadine/Pseudoephedrine [Tiffany-D 24 Hour Tablet] 1 each PO BID 02/21/18 Propranolol HCl [Inderal] 10 mg PO BID 02/21/18 Current Inpatient Medications: Current Inpatient Medications Acetaminophen (Tylenol) 325 mg PO Q6H PRN PRN Reason: Fever >101 Albuterol Sulfate (Ventolin Hfa) puff IH Q6 PRN PRN Reason: Wheezing Calcium/Vitamin D (Oscal W/ Vitamin D 500mg/200iu) each PO BID [facility] Clopidogrel Bisulfate (Plavix) 75 mg PO DAILY [facility] Cyanocobalamin (Vitamin B-12) 1,000 mcg PO D [facility] Docusate Sodium (Colace) 100 mg PO DAILY PRN PRN Reason: Constipation Gabapentin (Neurontin) 100 mg PO BID [facility] Last Admin: 02/21/18 21:28 Dose: 100 mg Sodium Chloride (Normal Saline) 1,000 mls @ 100 mls/hr IV Q10H [facility] Last Admin: 02/21/18 21:28 Dose: 100 mls/hr Loratadine (Claritin) 10 mg PO DAILY [facility] Magnesium Oxide (Mag-Oxide) 400 mg PO DAILY [facility] Multivitamins (Tab-A-Ursula) 1 each PO DAILY [facility] Pantoprazole Sodium (Protonix) 40 mg PO 717 [facility] Potassium Chloride (Klor-Con 10) 10 meq PO DAILY [facility] Ropinirole HCl (Requip) 1 mg PO HS [facility] Last Admin: 02/21/18 21:29 Dose: 1 mg Tramadol HCl (Ultram) 50 mg PO QID PRN PRN Reason: PAIN Exam - Exam Vital Signs: Vital Signs (72 hours) 02/21/18 02/21/18 02/21/18 15:53 16:06 16:36 Temperature 97.8 F Pulse Rate 78 80 Pulse Rate [ 82 Pulse ox] Respiratory 14 Rate Blood Pressure 111/48 [Right Arm] O2 Sat by Pulse 95 93 98 Oximetry 02/21/18 02/21/18 02/21/18 17:06 17:30 18:00 Temperature Pulse Rate 81 81 85 Pulse Rate [ Pulse ox] Respiratory Rate Blood Pressure [Right Arm] O2 Sat by Pulse 99 99 99 Oximetry 02/21/18 02/21/18 02/21/18 18:30 19:00 20:10 Temperature 97.5 F L Pulse Rate 84 84 Pulse Rate [ 60 Pulse ox] Respiratory 12 Rate Blood Pressure 110/42 [Right Arm] O2 Sat by Pulse 95 94 99 Oximetry 02/21/18 02/21/18 20:30 20:34 Temperature 97.3 F L Pulse Rate 81 Pulse Rate [ 84 Pulse ox] Respiratory 18 Rate Blood Pressure 91/49 [Right Arm] O2 Sat by Pulse 99 99 Oximetry General: Alert, Oriented to Person, Oriented to Place, Oriented to Time, Cooperative, No acute distress (but very unsteady) HEENT: Atraumatic, PERRLA, EOMI, Other (mucous membranes are dry) Neck: No: Stridor, Normal Range of Motion Lungs: Clear to auscultation, Decreased Air Movement Cardiovascular: Regular rate Murmur: Systolic Murmur Murmur Location: Left Sternal Boarder Heart Murmur Grade: II Abdomen: Normal bowel sounds, Soft, No tenderness Genitourinary: No: Other Male Genitourinary: No: Other Female Genitourinary: No: Other Integumentary: Decreased Turgor Extremities: No clubbing, No cyanosis Neurological: Normal speech. No: Normal gait Psych/Mental Status: Mental status NL - Laboratory Results Laboratory Results: Laboratory Results 02/21/18 02/21/18 02/21/18 16:11 16:11 16:11 WBC 16.00 H RBC 3.72 L Hgb 9.1 L Hct 28.6 L MCV 77.0 L MCH 24.5 L MCHC 31.9 RDW 14.8 H Plt Count 373 Neut % (Auto) 77.1 Lymph % (Auto) 9.5 L [place] % (Auto) 10.5 Eos % (Auto) 2.4 Baso % (Auto) 0.5 Neut # (Auto) 12.4 H Lymph # (Auto) 1.5 [place] # (Auto) 1.7 H Eos # (Auto) 0.4 Baso # (Auto) 0.1 Sodium 139 Potassium 3.5 Chloride 93 L Carbon Dioxide 28 BUN 55 H Creatinine 4.00 H Est GFR ( Amer) 14 L Est GFR (Non-Af Amer) 11 L Glucose 118 H Calcium 9.1 Total Bilirubin 0.3 AST 19 ALT 22 Alkaline Phosphatase 132 H Creatine Kinase < 20 L CK-MB (CK-2) 1.9 Troponin T NT-Pro-B Natriuret Pep Pending Total Protein 6.6 Albumin 3.6 02/21/18 16:13 WBC RBC Hgb Hct MCV MCH MCHC RDW Plt Count Neut % (Auto) Lymph % (Auto) [place] % (Auto) Eos % (Auto) Baso % (Auto) Neut # (Auto) Lymph # (Auto) [place] # (Auto) Eos # (Auto) Baso # (Auto) Sodium Potassium Chloride Carbon Dioxide BUN Creatinine Est GFR ( Amer) Est GFR (Non-Af Amer) Glucose Calcium Total Bilirubin AST ALT Alkaline Phosphatase Creatine Kinase CK-MB (CK-2) Troponin T 0.049 H NT-Pro-B Natriuret Pep Total Protein Albumin Assessment/Plan - Assessment/Plan (1) Acute renal failure Status: Acute Current Visit: Yes Assessment: She is extremely pre renal, and I suspect that she will improve with hydration, especially in view of her recent normal renal labs. Plan: Has had a bolus and running NS at 125cc/hour (2) Iron deficiency anemia Status: Acute Current Visit: Yes Assessment: Check CBC in the am, may need transfusion after rehydration (3) Dehydration Status: Acute Current Visit: Yes Assessment: IVF (4) Essential hypertension Status: Acute Current Visit: No Assessment: Currently hypotensive. Plan: Will hold HCTZ and propranolol (5) Generalized osteoarthritis Status: Acute Current Visit: No Assessment: Continue tramadol Hold diclofenac due to suspected GI bleed (6) TIA (transient ischemic attack) Status: Acute Current Visit: No Qualifiers: Transient cerebral ischemia type: unspecified Qualified Code(s): G45.9 - Transient cerebral ischemic attack, unspecified Plan: Continue Plavix VTE Assessment - RISK FACTOR SCORE VTE RISK FACTOR SCORES: AGE 40-60 YEARS, AGE OVER 60 YEARS - RISK VTE MODERATE RISK: SCORE OF 2 (RISK PROXIMAL DVT 2-4%) PROPHYAXIS NEEDED (Hold Lovenox due to suspected GI bleed.)
[2018-02-21] MEDS ORDERED: FUROSEMIDE 40 MG TABLET PO ONE (23:27)
[2018-02-21] MEDS ORDERED: DILTIAZEM HCL 180 MG CAP.ER.24H PO ONE (23:27)
[2018-02-22] MEDS: PANTOPRAZOLE SODIUM 40 MG TABLET PO SCH ×2 (06:06→17:48)
[2018-02-22] MEDS: 0.9 % SODIUM CHLORIDE 1,000 ML IV SCH ×2 (06:08→17:27)
[2018-02-22 07:02] LABS: OCCULT BLOOD,URINE NEGATIVE (NEGATIVE); UROBILINOGEN URINE 0.2 Eu (0.2-1.0)
[2018-02-22] MEDS: POTASSIUM CHLORIDE 10 MEQ TABLET.ER PO SCH (09:12)
[2018-02-22 09:13] LABS: ANISOCYTOSIS 1+ (NEGATIVE); BASOPHILS % 0 % (0-2); EOSINOPHILS % 2 % (0-7); MONOCYTES % 8 % (0-11); SEGMENTED NEUTROPHILS % 45 % (39-79)
[2018-02-22] MEDS: LORATADINE 10 MG TABLET PO SCH (09:13)
[2018-02-22] MEDS: GABAPENTIN 100 MG CAPSULE PO SCH ×2 (09:13→20:03)
[2018-02-22] MEDS: MAGNESIUM OXIDE 400 MG TABLET PO SCH (09:13)
[2018-02-22] MEDS: CYANOCOBALAMIN (VITAMIN B12) 1,000 MCG TABLET PO SCH (09:13)
[2018-02-22] MEDS: CLOPIDOGREL BISULFATE 75 MG TABLET PO SCH (09:13)
[2018-02-22] MEDS: MULTIVITAMIN 1 EACH TABLET PO SCH (09:13)
[2018-02-22 14:37] LABS: MEAN CORPUSCULAR HEMOGLOBIN 24.4 pg (28.0-34.0)
[2018-02-22 14:38] LABS: BASOPHILS % 0.5 (0.0-1.5); EOSINOPHILS % 3.5 % (0.0-6.8); MONOCYTES % 18.7 % (0.0-11.0); NEUTROPHILS # 9.3 # k/uL (1.4-7.7)
[2018-02-22] MEDS ORDERED: ALBUTEROL 90MCG/PUFF INHALER IH PRN (17:00)
[2018-02-22 17:08] LABS: MEAN CORPUSCULAR HEMOGLOBIN 24.4 pg (28.0-34.0)
[2018-02-22 17:09] LABS: BASOPHILS % 0.5 (0.0-1.5); EOSINOPHILS % 4.7 % (0.0-6.8); NEUTROPHILS # 8.6 # k/uL (1.4-7.7)
[2018-02-22] MEDS: CALCIUM/VIT D 500MG/200IU TABLET PO SCH ×3 (17:25→20:03)
--- NOTE | 2018-02-22 18:27 | Inpatient Progress Note ---
Subjective - Required Recertification Statement I anticipate X number of days because-include discharge plan: 1 - Review of Systems Events since last encounter: Marga is doing better today. She is not having any new problems. Her renal function is improving, however her CBC looks unchanged despite having been ostensibly drawn at 0700 and 1450. She is eating well. She feels much more steady on her feet. General: Denies: Chills, Night Sweats, Fatigue HEENT: Denies: Head Aches, Visual Changes Pulmonary: Denies: Dyspnea, Cough Cardiovascular: Denies: Chest Pain, Palpitations Gastrointestinal: Denies: Nausea, Vomiting Genitourinary: Deferred. Denies: Dysuria Musculoskeletal: Denies: Neck Pain, Shoulder Pain Neurological: Weakness. Denies: Change in Speech, Confusion Objective - Exam Vitals and I&O: Vital Signs Temp 97 F L 02/22/18 13:32 Pulse 97 H 02/22/18 16:00 Resp 18 02/22/18 13:32 BP 96/41 02/22/18 13:32 Pulse Ox 92 02/22/18 16:00 Intake & Output 02/21/18 02/22/18 02/22/18 23:59 11:59 23:59 Intake Total 810 1166 Balance 810 1166 Weight 57.153 kg Intake: IV 450 686 Right Antecubital 450 686 Oral 360 480 Other: Voiding Method Toilet Toilet Toilet # Voids 2 General: Alert, Oriented to Person, Oriented to Place, Oriented to Time, Cooperative, No acute distress HEENT: Atraumatic, PERRLA, EOMI Neck: Supple, No JVD Lungs: Clear to auscultation, Normal air movement, Speaks full Sentences, Respiratory Distress Cardiovascular: Regular rate, Normal S1, Normal S2 Abdomen: Normal bowel sounds, Soft, No tenderness Extremities: No clubbing, No cyanosis, No edema Skin: Normal Neurological: Normal speech Psych/Mental Status: Mental status NL - Results Results: Laboratory Results WBC 13.30 K/ul (4.00-12.00) H 02/22/18 16:50 RBC 3.08 M/ul (3.90-5.20) L 02/22/18 16:50 Hgb 7.5 g/dL (12.0-16.0) L 02/22/18 16:50 Hct 23.5 % (34.5-46.5) L 02/22/18 16:50 MCV 76.0 fl (80.0-100.0) L 02/22/18 16:50 MCH 24.4 pg (28.0-34.0) L 02/22/18 16:50 MCHC 32.0 g/dL (30.0-36.0) 02/22/18 16:50 RDW 14.6 % (11.3-14.3) H 02/22/18 16:50 Plt Count 277 K/mm3 (130-400) 02/22/18 16:50 Neut % (Auto) 64.6 % (39.0-79.0) 02/22/18 16:50 Lymph % (Auto) 10.2 % (16.0-50.0) L 02/22/18 16:50 [place] % (Auto) 20.0 % (0.0-11.0) H 02/22/18 16:50 Eos % (Auto) 4.7 % (0.0-6.8) 02/22/18 16:50 Baso % (Auto) 0.5 (0.0-1.5) 02/22/18 16:50 Neut # (Auto) 8.6 # k/uL (1.4-7.7) H 02/22/18 16:50 Lymph # (Auto) 1.4 # k/uL (0.6-4.0) 02/22/18 16:50 [place] # (Auto) 2.7 # k/uL (0.0-0.9) H 02/22/18 16:50 Eos # (Auto) 0.6 # k/uL (0.0-0.6) 02/22/18 16:50 Baso # (Auto) 0.1 # k/uL (0.0-0.5) 02/22/18 16:50 Seg Neutrophils % 45 % (39-79) 02/22/18 06:00 Band Neutrophils % 33 % (0-12) H 02/22/18 06:00 Lymphocytes % 11 % (16-50) L 02/22/18 06:00 Monocytes % 8 % (0-11) 02/22/18 06:00 Eosinophils % 2 % (0-7) 02/22/18 06:00 Basophils % 0 % (0-2) 02/22/18 06:00 Metamyelocytes % 0 % (0-0) 02/22/18 06:00 Myelocytes % 1 % (0-0) H 02/22/18 06:00 Reactive Lymphocytes 0 % (0-5) 02/22/18 06:00 Poikilocytosis 1+ (NEGATIVE) H 02/22/18 06:00 Anisocytosis 1+ (NEGATIVE) H 02/22/18 06:00 Microcytosis 1+ (NEGATIVE) H 02/22/18 06:00 Sodium 138 mmol/L (136-145) 02/22/18 16:50 Potassium 3.5 mmol/L (3.5-5.1) 02/22/18 16:50 Chloride 103 mmol/L (98-107) 02/22/18 16:50 Carbon Dioxide 23 mmol/L (22-30) 02/22/18 16:50 BUN 47 mg/dL (7-17) H 02/22/18 16:50 Creatinine 1.50 mg/dL (0.52-1.04) H 02/22/18 16:50 Estimated Creat Clear 26 02/22/18 16:50 Est GFR ( Amer) 42 (60-) L 02/22/18 16:50 Est GFR (Non-Af Amer) 35 (60-) L 02/22/18 16:50 Glucose 111 mg/dL (74-106) H 02/22/18 16:50 Calcium 8.1 mg/dL (8.4-10.2) L 02/22/18 16:50 Total Bilirubin 0.2 mg/dL (0.2-1.3) 02/22/18 16:50 AST 33 U/L (15-46) 02/22/18 16:50 ALT 25 U/L (13-69) 02/22/18 16:50 Alkaline Phosphatase 128 U/L (38-126) H 02/22/18 16:50 Creatine Kinase < 20 U/L (30-135) L 02/21/18 16:11 CK-MB (CK-2) 1.9 ng/mL (0.0-5.6) 02/21/18 16:11 Troponin T 0.049 ng/mL (<0.010) H 02/21/18 16:13 Qzz-S-Shdpopuurxa Pept 1775 pg/mL (<450) H 02/21/18 17:30 Total Protein 5.6 g/dL (6.3-8.2) L 02/22/18 16:50 Albumin 2.8 g/dL (3.5-5.0) L 02/22/18 16:50 Urine pH 5.0 (5.0 - 8.0) 02/21/18 19:40 Ur Specific [place] 1.025 (1.010-1.030) 02/21/18 19:40 Urine Protein 1+ mg/dL (NEGATIVE) H 02/21/18 19:40 Urine Ketones Trace mg/dL (NEGATIVE) H 02/21/18 19:40 Urine Occult Blood Negative (NEGATIVE) 02/21/18 19:40 Urine Nitrite Negative (NEGATIVE) 02/21/18 19:40 Urine Bilirubin 1+ (NEGATIVE) H 02/21/18 19:40 Urine Urobilinogen 0.2 Eu (0.2-1.0) 02/21/18 19:40 Ur Leukocyte Esterase Trace (NEGATIVE) H 02/21/18 19:40 Urine Glucose Negative mg/dL (NEGATIVE) 02/21/18 19:40 Assessment/Plan - Assessment/Plan (1) Acute renal failure Status: Acute Current Visit: Yes Assessment: Improved (2) Iron deficiency anemia Status: Acute Current Visit: Yes Assessment: Redrawing CBC (3) Dehydration Status: Acute Current Visit: Yes Assessment: Improved Hope for discharge to home tomorrow (4) Essential hypertension Status: Acute Current Visit: No Assessment: Well controlled (5) Generalized osteoarthritis Status: Acute Current Visit: No Assessment: Stable (6) TIA (transient ischemic attack) Status: Acute Current Visit: No Qualifiers: Transient cerebral ischemia type: unspecified Qualified Code(s): G45.9 - Transient cerebral ischemic attack, unspecified
--- NOTE | 2018-02-22 19:34 | Diagnostic Imaging Report ---
LATHA HAAS [facility] [address] [facility] [address] [place], [place]. [address] Report Submission Date: Feb 22, 2018 3:18:47 PM CDT Patient Study Name: BHANU BACON Date: Feb 22, 2018 2:57:18 PM CDT Modality Type: CT\SR Gender: F Description: CT BRAIN W/O CONTRAST : [birth year] Institution: [facility] Physician: LATHA HAAS Examination: CT head without contrast History: MENTAL STATUS CHANGES. PT STATES CONSISTANT FALLING WITH THE MOST RECENT BEING LESS THAN 24 HOURS (Hx) Comparison exam: None available Technique: Noncontrast head CT protocol. Findings: Ventricles and sulci are prominent. Cerebrocerebellar parenchyma demonstrates periventricular low attenuation consistent with small vessel disease. No evidence for parenchymal hemorrhage. No evidence for mass or mass effect. No midline shift. No extra axial fluid collections. Partial visualization of the paranasal sinuses, mastoid air cells, orbits, skull and scalp without gross irregularity. Streak artifact from dental hardware. Impression: Advanced age related changes. No acute parenchymal process. No hemorrhage. Electronically signed on Feb 22, 2018 3:18:47 PM CDT by: Sam FULTON
[2018-02-22] MEDS: rOPINIRole HCL 1 MG TABLET PO SCH (20:03)
[2018-02-22 20:51] LABS: TROPONIN T 0.012 ng/mL (<0.010)
[2018-02-23] MEDS: traMADol HCL 50 MG TABLET PO PRN ×2 (00:51→14:21)
[2018-02-23] MEDS: 0.9 % SODIUM CHLORIDE 1,000 ML IV SCH ×3 (02:04→21:54)
[2018-02-23] MEDS: PANTOPRAZOLE SODIUM 40 MG TABLET PO SCH ×2 (06:01→17:18)
--- NOTE | 2018-02-23 06:16 | Diagnostic Imaging Report ---
LATHA HAAS [facility] [address] [facility] [address] Report Submission Date: Feb 22, 2018 7:58:08 PM CDT Patient Study Name: BHANU BACON Date: Feb 22, 2018 1:48:11 PM CDT Modality Type: DX Gender: F Description: CHEST : [birth year] Institution: [facility] Physician: LATHA HAAS PA and lateral chest History: Repetitive falls PA and lateral chest dated February 22, 2018 is compared with February 21, 2018. The lungs are hyperinflated. There is a calcified granuloma at the mid left lung. Heart size is normal. Pulmonary vascularity is normal. There is no infiltrate, pleural effusion or pneumothorax. Impression: Findings consistent with mild emphysema. Old granulomatous disease. No active disease. Electronically signed on Feb 22, 2018 7:58:08 PM CDT by: Cecilia FULTON
[2018-02-23] MEDS: POTASSIUM CHLORIDE 10 MEQ TABLET.ER PO SCH (09:05)
[2018-02-23] MEDS: GABAPENTIN 100 MG CAPSULE PO SCH ×2 (09:05→20:21)
[2018-02-23] MEDS: MAGNESIUM OXIDE 400 MG TABLET PO SCH (09:05)
[2018-02-23] MEDS: LORATADINE 10 MG TABLET PO SCH (09:05)
[2018-02-23] MEDS: CYANOCOBALAMIN (VITAMIN B12) 1,000 MCG TABLET PO SCH (09:06)
[2018-02-23] MEDS: MULTIVITAMIN 1 EACH TABLET PO SCH (09:06)
[2018-02-23] MEDS: CALCIUM/VIT D 500MG/200IU TABLET PO SCH ×2 (09:06→20:23)
[2018-02-23] MEDS: CLOPIDOGREL BISULFATE 75 MG TABLET PO SCH (09:06)
[2018-02-23 13:17] LABS: MEAN CORPUSCULAR HEMOGLOBIN 24.4 pg (28.0-34.0)
--- NOTE | 2018-02-23 13:40 | Inpatient Progress Note ---
Subjective - Required Recertification Statement I anticipate X number of days because-include discharge plan: 2 - Review of Systems Events since last encounter: Marga is still very weak. Her hemoglobin has not come up at all, and in fact has dropped to 7.5 today. She denies any recent bleeding. I reviewed her labs, and prior to her back surgery, her hemoglobin was 12.4. She has no evidence of fluid overload. General: Malaise. Denies: Chills, Night Sweats, Appetite HEENT: Denies: Head Aches Pulmonary: Denies: Dyspnea, Cough Cardiovascular: Denies: Chest Pain Gastrointestinal: Denies: Nausea, Vomiting, Abdominal Pain Genitourinary: Denies: Dysuria Musculoskeletal: Denies: Neck Pain, Shoulder Pain Neurological: Weakness. Denies: Change in Speech, Confusion Objective - Exam Vitals and I&O: Vital Signs Temp 99.0 F 02/23/18 10:00 Pulse 105 H 02/23/18 12:00 Resp 22 02/23/18 10:00 BP 161/61 02/23/18 10:00 Pulse Ox 91 L 02/23/18 12:00 Intake & Output 02/22/18 02/23/18 02/23/18 23:59 11:59 23:59 Intake Total 2146 1580 240 Balance 2146 1580 240 Intake: IV 1306 1000 Right Antecubital 1306 1000 Oral 840 580 240 Other: Voiding Method Toilet Toilet # Voids 2 2 # Bowel Movements 1 General: Alert, Oriented to Person, Oriented to Place, Oriented to Time, Cooperative, Mild distress (due to fatigue), Thin HEENT: Atraumatic, PERRLA, EOMI, Mouth Mucous membr. moist/[place] Neck: Supple, No JVD Lungs: Clear to auscultation, Normal air movement. No: Respiratory Distress Cardiovascular: Regular rate Abdomen: Normal bowel sounds, Soft, No tenderness Extremities: No clubbing, No cyanosis, No edema Skin: Normal, Pale Neurological: Normal speech Psych/Mental Status: Mental status NL - Results Results: Laboratory Results WBC 13.30 K/ul (4.00-12.00) H 02/22/18 16:50 RBC 3.08 M/ul (3.90-5.20) L 02/22/18 16:50 Hgb 7.5 g/dL (12.0-16.0) L 02/22/18 16:50 Hct 23.5 % (34.5-46.5) L 02/22/18 16:50 MCV 76.0 fl (80.0-100.0) L 02/22/18 16:50 MCH 24.4 pg (28.0-34.0) L 02/22/18 16:50 MCHC 32.0 g/dL (30.0-36.0) 02/22/18 16:50 RDW 14.6 % (11.3-14.3) H 02/22/18 16:50 Plt Count 277 K/mm3 (130-400) 02/22/18 16:50 Neut % (Auto) 64.6 % (39.0-79.0) 02/22/18 16:50 Lymph % (Auto) 10.2 % (16.0-50.0) L 02/22/18 16:50 [place] % (Auto) 20.0 % (0.0-11.0) H 02/22/18 16:50 Eos % (Auto) 4.7 % (0.0-6.8) 02/22/18 16:50 Baso % (Auto) 0.5 (0.0-1.5) 02/22/18 16:50 Neut # (Auto) 8.6 # k/uL (1.4-7.7) H 02/22/18 16:50 Lymph # (Auto) 1.4 # k/uL (0.6-4.0) 02/22/18 16:50 [place] # (Auto) 2.7 # k/uL (0.0-0.9) H 02/22/18 16:50 Eos # (Auto) 0.6 # k/uL (0.0-0.6) 02/22/18 16:50 Baso # (Auto) 0.1 # k/uL (0.0-0.5) 02/22/18 16:50 Seg Neutrophils % 45 % (39-79) 02/22/18 06:00 Band Neutrophils % 33 % (0-12) H 02/22/18 06:00 Lymphocytes % 11 % (16-50) L 02/22/18 06:00 Monocytes % 8 % (0-11) 02/22/18 06:00 Eosinophils % 2 % (0-7) 02/22/18 06:00 Basophils % 0 % (0-2) 02/22/18 06:00 Metamyelocytes % 0 % (0-0) 02/22/18 06:00 Myelocytes % 1 % (0-0) H 02/22/18 06:00 Reactive Lymphocytes 0 % (0-5) 02/22/18 06:00 Poikilocytosis 1+ (NEGATIVE) H 02/22/18 06:00 Anisocytosis 1+ (NEGATIVE) H 02/22/18 06:00 Microcytosis 1+ (NEGATIVE) H 02/22/18 06:00 Sodium 140 mmol/L (136-145) 02/22/18 18:20 Potassium 3.3 mmol/L (3.5-5.1) L 02/22/18 18:20 Chloride 106 mmol/L (98-107) 02/22/18 18:20 Carbon Dioxide 23 mmol/L (22-30) 02/22/18 18:20 BUN 43 mg/dL (7-17) H 02/22/18 18:20 Creatinine 1.50 mg/dL (0.52-1.04) H 02/22/18 18:20 Estimated Creat Clear 26 02/22/18 18:20 Est GFR ( Amer) 42 (60-) L 02/22/18 18:20 Est GFR (Non-Af Amer) 35 (60-) L 02/22/18 18:20 Glucose 139 mg/dL (74-106) H 02/22/18 18:20 Calcium 8.0 mg/dL (8.4-10.2) L 02/22/18 18:20 Total Bilirubin 0.1 mg/dL (0.2-1.3) L 02/22/18 18:20 AST 14 U/L (15-46) L 02/22/18 18:20 ALT 25 U/L (13-69) 02/22/18 18:20 Alkaline Phosphatase 127 U/L (38-126) H 02/22/18 18:20 Creatine Kinase < 20 U/L (30-135) L 02/21/18 16:11 CK-MB (CK-2) 1.9 ng/mL (0.0-5.6) 02/21/18 16:11 Troponin T 0.012 ng/mL (<0.010) H 02/22/18 16:50 Kdt-[id number] Pept 1775 pg/mL (<450) H 02/21/18 17:30 Total Protein 5.1 g/dL (6.3-8.2) L 02/22/18 18:20 Albumin 2.7 g/dL (3.5-5.0) L 02/22/18 18:20 Urine pH 5.0 (5.0 - 8.0) 02/21/18 19:40 Ur Specific [place] 1.025 (1.010-1.030) 02/21/18 19:40 Urine Protein 1+ mg/dL (NEGATIVE) H 02/21/18 19:40 Urine Ketones Trace mg/dL (NEGATIVE) H 02/21/18 19:40 Urine Occult Blood Negative (NEGATIVE) 02/21/18 19:40 Urine Nitrite Negative (NEGATIVE) 02/21/18 19:40 Urine Bilirubin 1+ (NEGATIVE) H 02/21/18 19:40 Urine Urobilinogen 0.2 Eu (0.2-1.0) 02/21/18 19:40 Ur Leukocyte Esterase Trace (NEGATIVE) H 02/21/18 19:40 Urine Glucose Negative mg/dL (NEGATIVE) 02/21/18 19:40 Assessment/Plan - Assessment/Plan (1) Acute renal failure Status: Acute Current Visit: Yes Assessment: improved with hydration (2) Iron deficiency anemia Status: Acute Current Visit: Yes Assessment: Hemoglobin still dropping slowly Plan: Transfuse 2 units of packed red blood cells (3) Dehydration Status: Acute Current Visit: Yes Assessment: Continue IVF, observe for any evidence of fluid overload. (4) Essential hypertension Status: Acute Current Visit: No (5) Generalized osteoarthritis Status: Acute Current Visit: No (6) TIA (transient ischemic attack) Status: Acute Current Visit: No Qualifiers: Transient cerebral ischemia type: unspecified Qualified Code(s): G45.9 - Transient cerebral ischemic attack, unspecified Assessment: Continue Plavix
[2018-02-23 13:46] LABS: BASOPHILS % 0.5 (0.0-1.5); EOSINOPHILS % 4.8 % (0.0-6.8)
[2018-02-23] MEDS ORDERED: 0.9 % SODIUM CHLORIDE 250 ML IV ONE (16:54)
[2018-02-23] MEDS: ACETAMINOPHEN 325 MG TABLET PO PRN (17:15)
[2018-02-23] MEDS ORDERED: diphenhydrAMINE HCL 25 MG TABLET PO SCH (19:00)
[2018-02-23] MEDS: rOPINIRole HCL 1 MG TABLET PO SCH (20:22)
[2018-02-24] MEDS: traMADol HCL 50 MG TABLET PO PRN ×3 (01:20→18:23)
[2018-02-24] MEDS: PANTOPRAZOLE SODIUM 40 MG TABLET PO SCH ×2 (06:08→16:49)
[2018-02-24 07:27] LABS: BASOPHILS % 0.4 (0.0-1.5); EOSINOPHILS % 3.6 % (0.0-6.8); MONOCYTES % 13.7 % (0.0-11.0); NEUTROPHILS # 6.2 # k/uL (1.4-7.7)
[2018-02-24] MEDS: POTASSIUM CHLORIDE 10 MEQ TABLET.ER PO SCH (08:16)
[2018-02-24] MEDS: CLOPIDOGREL BISULFATE 75 MG TABLET PO SCH (08:16)
[2018-02-24] MEDS: LORATADINE 10 MG TABLET PO SCH (08:16)
[2018-02-24] MEDS: CYANOCOBALAMIN (VITAMIN B12) 1,000 MCG TABLET PO SCH (08:16)
[2018-02-24] MEDS: MAGNESIUM OXIDE 400 MG TABLET PO SCH (08:17)
[2018-02-24] MEDS: MULTIVITAMIN 1 EACH TABLET PO SCH (08:17)
[2018-02-24] MEDS: GABAPENTIN 100 MG CAPSULE PO SCH ×2 (08:17→20:10)
[2018-02-24] MEDS: CALCIUM/VIT D 500MG/200IU TABLET PO SCH ×2 (08:17→20:10)
[2018-02-24] MEDS: ONDANSETRON HCL 4 MG TAB.RAPDIS PO PRN (08:26)
[2018-02-24] MEDS: 0.9 % SODIUM CHLORIDE 1,000 ML IV SCH ×2 (10:53→16:50)
--- NOTE | 2018-02-24 15:44 | Discharge Summary ---
DATE OF ADMISSION: February 21, 2018 DATE OF DISCHARGE: February 24, 2018 DIAGNOSES ON THIS HOSPITALIZATION: 1. Dehydration. 2. Hypotension. 3. Anemia. 4. Acute renal failure. 5. Generalized arthritis. 6. Transient ischemia attack (TIA). SUMMARIZATION OF ADMISSION HISTORY AND PHYSICAL: This is an 87-year-old female patient of Dr. Casas who had been having some nausea and vomiting for several days before she came in. She had eaten some beans a few days before she came in and then got quite a bit of nausea and vomiting with some diarrhea. She had been told to stop her hydrochlorothiazide but she restarted that on her own. She also took some laxatives likely compounding her dehydration. When she came in her BUN was 55 and her creatinine was 4.0 and her hemoglobin was 9.1 and it has dropped to 7.5 with hydration. HOSPITAL COURSE: She was started on hydration. She did have an elevated white count but I could not find a focus and actually her white count came down to normal. She was transfused 2 units of packed red blood cells on the evening of February 23, 2018. Her hemoglobin the next morning was 10.8. She was still very weak and had an unsteady gait but was not having further falls. She will be transferred then to skilled today for occupational therapy and physical therapy. MEDICATIONS ON DISCHARGE: 1. Tylenol 325 mg p.o. every 6 hours p.r.n. fever or chills. 2. Ventolin inhaler 1 to 2 puffs every 4 to 6 hours p.r.n. 3. Calcium carbonate 500 mg 1 p.o. b.i.d. 4. Plavix 75 mg daily. 5. Vitamin B12, 1000 mcg daily. 6. Neurontin 100 mg p.o. t.i.d. 7. Loratadine 10 mg p.o. daily. 8. Magnesium oxide 400 mg daily. 9. Multivitamin 1 p.o. daily. 10. Zofran 4 mg p.o. every 6 hours. 11. Pantoprazole 40 mg daily. 12. Potassium chloride 10 mEq daily. 13. Tramadol 50 mg p.o. q.i.d. 14. Ropinirole 1 mg p.o. at bedtime. CONDITION ON DISCHARGE: She is discharged to skilled in improved condition. [facility]
[2018-02-24] MEDS: ACETAMINOPHEN 325 MG TABLET PO PRN (18:23)
[2018-02-24] MEDS ORDERED: MELATONIN 3 MG TABLET PO PRN (20:06)
[2018-02-24] MEDS: rOPINIRole HCL 1 MG TABLET PO SCH (20:10)
[2018-02-25] MEDS: traMADol HCL 50 MG TABLET PO PRN (04:55)
[2018-02-25] MEDS: ONDANSETRON HCL 4 MG TAB.RAPDIS PO PRN (04:55)
[2018-02-25] MEDS: PANTOPRAZOLE SODIUM 40 MG TABLET PO SCH (06:02)
[2018-02-25] MEDS: CYANOCOBALAMIN (VITAMIN B12) 1,000 MCG TABLET PO SCH (09:09)
[2018-02-25] MEDS: MULTIVITAMIN 1 EACH TABLET PO SCH (09:09)
[2018-02-25] MEDS: GABAPENTIN 100 MG CAPSULE PO SCH (09:10)
[2018-02-25] MEDS: CLOPIDOGREL BISULFATE 75 MG TABLET PO SCH (09:10)
[2018-02-25] MEDS: CALCIUM/VIT D 500MG/200IU TABLET PO SCH (09:10)
[2018-02-25] MEDS: POTASSIUM CHLORIDE 10 MEQ TABLET.ER PO SCH (09:10)
[2018-02-25] MEDS: MAGNESIUM OXIDE 400 MG TABLET PO SCH (09:10)
[2018-02-25] MEDS: LORATADINE 10 MG TABLET PO SCH (09:10)
[2018-02-25 09:40] VITALS: BP 151/57
== END 2018-02-25 09:36 | disposition home or self-care (01) | DRG 641 ==
LOC: ED 15:53 → SOUTH 20:04
PROVIDERS: ADMIT Family Medicine; ATTEND Family Medicine
DX: E86.0 Dehydration (principal); N17.9 Acute kidney failure, unspecified; Z86.73 Personal history of transient ischemic attack (TIA), and cerebral infarction without residual deficits; D64.9 Anemia, unspecified; I95.9 Hypotension, unspecified; I10 Essential (primary) hypertension; R29.6 Repeated falls; M15.9 Polyosteoarthritis, unspecified
CPT/HCPCS: 36415; 70450; 71045; 71046; 80053; 81002; 82550; 82553; 83880; 84484; 85025; 93005; 97116; 97530; 97535; A9270; J7030; J7050; J7060; Q0163; 96360; 96361; 99222; 99232; 99238; S1016

== ENCOUNTER 2018-02-25 09:38 | Inpatient (IN) | payer OTHER ==
[2018-02-25] MEDS ORDERED: ALBUTEROL 90MCG/PUFF INHALER IH PRN (11:00)
[2018-02-25] MEDS ORDERED: ONDANSETRON HCL 4 MG TAB.RAPDIS PO PRN (11:44)
[2018-02-25 12:48] VITALS: BMI 24.4
[2018-02-25] MEDS ORDERED: CALCIUM CARB 500 MG TAB.CHEW ONE (12:48)
[2018-02-25] MEDS: ACETAMINOPHEN 325 MG TABLET PO PRN (13:00)
[2018-02-25] MEDS: GABAPENTIN 100 MG CAPSULE PO SCH ×2 (13:02→17:41)
[2018-02-25] MEDS ORDERED: 0.9 % SODIUM CHLORIDE 1,000 ML IV ONE (19:28)
[2018-02-25 20:12] LABS: eGFR (Non-African) > 60
[2018-02-25] MEDS: CALCIUM CARB 500 MG TAB.CHEW PO SCH (20:24)
[2018-02-25] MEDS: rOPINIRole HCL 1 MG TABLET PO SCH (20:24)
[2018-02-25] MEDS: traMADol HCL 50 MG TABLET PO PRN (20:24)
[2018-02-25] MEDS ORDERED: ENOXAPARIN SODIUM 40 MG/0.4 ML DISP.SYRIN SQ SCH (21:00)
--- NOTE | 2018-02-25 22:03 | Diagnostic Imaging Report ---
JIMENEZ DUENAS [facility] [id number] [facility].[address] [address] Report Submission Date: Feb 25, 2018 9:16:00 PM CDT Patient Study Name: BHANU BACON Date: Feb 25, 2018 8:51:15 PM CDT Modality Type: CT Gender: F Description: CT ABD PELVIS W/ CON : [birth year] Institution: [facility] Physician: JIMENEZ DUENAS Computed tomography abdomen pelvis with contrast History: Abdominal distention and tenderness. Unresponsive post blood transfusion. Findings: Transverse abdomen and pelvis sections are obtained after 95 mL intravenous Omnipaque 350. No comparisons are available. Mural thickening is observed from the distal transverse colon through the descending colon. Interbody and posterior fusion hardware is observed at all levels between L2 and L5. Posterior decompressions have been performed from L3 through L5. A small left hepatic cyst is present. Cholecystectomy has been performed. Extensive aortic atherosclerotic disease is observed. Mild proximal celiac axis stenosis is observed. The inferior mesenteric and superior mesenteric artery origins are patent. The adrenals, pancreas, spleen, liver, and kidneys are otherwise normal. There is mild gassy distension of the proximal to mid colon. Small bowel loops are normal in caliber and wall thickness. Pelvic sections reveal nonvisualization of the appendix without evidence of appendicitis. The urinary bladder is incompletely distended. Hysterectomy has been performed. Minimal free pelvic fluid is observed. Impression: 1. Left-sided colitis. 2. Lumbar fusion and decompression, hysterectomy, cholecystectomy, and probably appendectomy. Surgical history has not been provided. 3. Atherosclerosis and minimal free pelvic fluid. Electronically signed on Feb 25, 2018 9:16:00 PM CDT by: Alphonso FULTON
[2018-02-26] MEDS: PANTOPRAZOLE SODIUM 40 MG TABLET PO SCH (06:00)
[2018-02-26 07:47] LABS: NEUTROPHILS # 6.9 # k/uL (1.4-7.7)
[2018-02-26] MEDS: CALCIUM CARB 500 MG TAB.CHEW PO SCH ×2 (07:54→20:06)
[2018-02-26] MEDS: POTASSIUM CHLORIDE 10 MEQ TABLET.ER PO SCH (07:54)
[2018-02-26] MEDS: MAGNESIUM OXIDE 400 MG TABLET PO SCH (07:55)
[2018-02-26] MEDS: CYANOCOBALAMIN (VITAMIN B12) 1,000 MCG TABLET PO SCH (07:55)
[2018-02-26] MEDS: MULTIVITAMIN 1 EACH TABLET PO SCH (07:56)
[2018-02-26] MEDS: GABAPENTIN 100 MG CAPSULE PO SCH ×3 (07:56→17:21)
[2018-02-26] MEDS: LORATADINE 10 MG TABLET PO SCH (07:57)
[2018-02-26] MEDS: CLOPIDOGREL BISULFATE 75 MG TABLET PO SCH (09:16)
[2018-02-26 11:18] LABS: SEGMENTED NEUTROPHILS % 78 % (39-79)
[2018-02-26 11:19] LABS: BASOPHILS % 0 % (0-2); EOSINOPHILS % 5 % (0-7); MONOCYTES % 6 % (0-11)
[2018-02-26] MEDS: DOCUSATE SODIUM 100 MG CAPSULE PO SCH ×2 (12:56→20:05)
--- NOTE | 2018-02-26 12:57 | Inpatient Progress Note ---
Subjective - Required Recertification Statement I anticipate X number of days because-include discharge plan: 6 - Review of Systems Events since last encounter: Marga is feeling a little better now, but still has some pain in her left lower quadrant. Her CT scan showed some left sided colitis, but no other pathology. She has no fever. She is completely oriented and alert, but is having some nausea. Her ekg is not suspicous for ischemia, and her troponin is negative. General: Fatigue. Denies: Chills, Night Sweats HEENT: Denies: Head Aches, Visual Changes Pulmonary: Denies: Dyspnea Cardiovascular: Denies: Chest Pain Gastrointestinal: Nausea, Vomiting, Abdominal Pain (left sided). Denies: Diarrhea Genitourinary: Denies: Dysuria Musculoskeletal: Denies: Neck Pain Neurological: Weakness. Denies: Change in Speech, Confusion Objective - Exam Vitals and I&O: Vital Signs Temp 99.0 F 02/26/18 09:00 Pulse 114 H 02/26/18 09:00 Resp 18 02/26/18 09:00 BP 146/58 02/26/18 09:00 Pulse Ox 92 02/26/18 09:00 Intake & Output 02/25/18 02/26/18 02/26/18 23:59 11:59 23:59 Intake Total 1240 360 Balance 1240 360 Intake: Oral 1240 360 Other: Voiding Method Toilet Toilet # Voids 1 4 General: Alert, Oriented to Person, Oriented to Place, Oriented to Time, Cooperative, Mild distress HEENT: Atraumatic, PERRLA, EOMI, Mouth Mucous membr. moist/Miner Neck: Supple, No JVD Lungs: Clear to auscultation, Normal air movement Cardiovascular: Regular rate, Normal S1, Normal S2 Abdomen: Normal bowel sounds, Soft, Other (Tender in left lower quadrant) Extremities: No clubbing, No cyanosis, No edema Skin: Normal, [place], Warm Neurological: Normal speech Psych/Mental Status: Mental status NL, Mood NL, Appropriate Affect - Results Results: Laboratory Results WBC 10.50 K/ul (4.00-12.00) 02/25/18 19:40 RBC 4.19 M/ul (3.90-5.20) 02/25/18 19:40 Hgb 10.9 g/dL (12.0-16.0) L 02/25/18 19:40 Hct 33.8 % (34.5-46.5) L 02/25/18 19:40 MCV 81.0 fl (80.0-100.0) 02/25/18 19:40 MCH 26.0 pg (28.0-34.0) L 02/25/18 19:40 MCHC 32.3 g/dL (30.0-36.0) 02/25/18 19:40 RDW 15.3 % (11.3-14.3) H 02/25/18 19:40 Plt Count 304 K/mm3 (130-400) 02/25/18 19:40 Neut # (Auto) 6.9 # k/uL (1.4-7.7) 02/25/18 19:40 Lymph # (Auto) 1.3 # k/uL (0.6-4.0) 02/25/18 19:40 [place] # (Auto) 2.0 # k/uL (0.0-0.9) H 02/25/18 19:40 Eos # (Auto) 0.0 # k/uL (0.0-0.6) 02/25/18 19:40 Baso # (Auto) 0.0 # k/uL (0.0-0.5) 02/25/18 19:40 Seg Neutrophils % 78 % (39-79) 02/25/18 19:40 Band Neutrophils % 2 % (0-12) 02/25/18 19:40 Lymphocytes % 4 % (16-50) L 02/25/18 19:40 Monocytes % 6 % (0-11) 02/25/18 19:40 Eosinophils % 5 % (0-7) 02/25/18 19:40 Basophils % 0 % (0-2) 02/25/18 19:40 Metamyelocytes % 2 % (0-0) H 02/25/18 19:40 Myelocytes % 2 % (0-0) H 02/25/18 19:40 Reactive Lymphocytes 1 % (0-5) 02/25/18 19:40 Dimorphic RBCs Present (NEGATIVE) H 02/25/18 19:40 Sodium 137 mmol/L (136-145) 02/25/18 19:40 Potassium 3.8 mmol/L (3.5-5.1) 02/25/18 19:40 Chloride 97 mmol/L (98-107) L 02/25/18 19:40 Carbon Dioxide 30 mmol/L (22-30) 02/25/18 19:40 BUN 12 mg/dL (7-17) 02/25/18 19:40 Creatinine 0.60 mg/dL (0.52-1.04) 02/25/18 19:40 Estimated Creat Clear 66 02/25/18 19:40 Est GFR ( Amer) > 60 (60-) 02/25/18 19:40 Est GFR (Non-Af Amer) > 60 (60-) 02/25/18 19:40 Glucose 154 mg/dL (74-106) H 02/25/18 19:40 Calcium 8.8 mg/dL (8.4-10.2) 02/25/18 19:40 Total Bilirubin 0.2 mg/dL (0.2-1.3) 02/25/18 19:40 AST 15 U/L (15-46) 02/25/18 19:40 ALT 21 U/L (13-69) 02/25/18 19:40 Alkaline Phosphatase 119 U/L (38-126) 02/25/18 19:40 Troponin I < 0.03 ng/mL (0.03-0.06) L 02/26/18 10:45 Total Protein 5.7 g/dL (6.3-8.2) L 02/25/18 19:40 Albumin 2.9 g/dL (3.5-5.0) L 02/25/18 19:40 Assessment/Plan - Assessment/Plan (1) Colitis Status: Acute Current Visit: Yes Assessment: Start Solumedrol Send gastrointestinal pathogen studies
[2018-02-26] MEDS ORDERED: 0.9 % SODIUM CHLORIDE 100 ML IV ONE (13:30)
[2018-02-26] MEDS ORDERED: methylPREDNISolone SOD SUCC 125 MG/2 ML VIAL ONE (13:30)
[2018-02-26] MEDS: rOPINIRole HCL 1 MG TABLET PO SCH (20:05)
[2018-02-26] MEDS: traMADol HCL 50 MG TABLET PO PRN (20:05)
[2018-02-27] MEDS: PANTOPRAZOLE SODIUM 40 MG TABLET PO SCH (06:35)
[2018-02-27] MEDS: POTASSIUM CHLORIDE 10 MEQ TABLET.ER PO SCH (08:18)
[2018-02-27] MEDS: GABAPENTIN 100 MG CAPSULE PO SCH ×3 (08:19→18:27)
[2018-02-27] MEDS: MAGNESIUM OXIDE 400 MG TABLET PO SCH (08:19)
[2018-02-27] MEDS: CYANOCOBALAMIN (VITAMIN B12) 1,000 MCG TABLET PO SCH (08:19)
[2018-02-27] MEDS: MULTIVITAMIN 1 EACH TABLET PO SCH (08:19)
[2018-02-27] MEDS: LORATADINE 10 MG TABLET PO SCH (08:21)
[2018-02-27] MEDS: CALCIUM CARB 500 MG TAB.CHEW PO SCH ×2 (08:21→20:56)
[2018-02-27] MEDS: CLOPIDOGREL BISULFATE 75 MG TABLET PO SCH (08:21)
[2018-02-27] MEDS: DOCUSATE SODIUM 100 MG CAPSULE PO SCH ×2 (08:21→20:56)
[2018-02-27] MEDS: traMADol HCL 50 MG TABLET PO PRN (20:56)
[2018-02-27] MEDS: rOPINIRole HCL 1 MG TABLET PO SCH (20:56)
[2018-02-28] MEDS: PANTOPRAZOLE SODIUM 40 MG TABLET PO SCH (06:41)
[2018-02-28] MEDS: GABAPENTIN 100 MG CAPSULE PO SCH ×3 (08:22→17:43)
[2018-02-28] MEDS: DOCUSATE SODIUM 100 MG CAPSULE PO SCH ×2 (08:22→20:25)
[2018-02-28] MEDS: CYANOCOBALAMIN (VITAMIN B12) 1,000 MCG TABLET PO SCH (08:22)
[2018-02-28] MEDS: MAGNESIUM OXIDE 400 MG TABLET PO SCH (08:22)
[2018-02-28] MEDS: LORATADINE 10 MG TABLET PO SCH (08:22)
[2018-02-28] MEDS: CALCIUM CARB 500 MG TAB.CHEW PO SCH ×2 (08:22→20:26)
[2018-02-28] MEDS: CLOPIDOGREL BISULFATE 75 MG TABLET PO SCH (08:22)
[2018-02-28] MEDS: MULTIVITAMIN 1 EACH TABLET PO SCH (08:22)
[2018-02-28] MEDS: POTASSIUM CHLORIDE 10 MEQ TABLET.ER PO SCH (08:22)
[2018-02-28] MEDS: NICOTINE 14mg PATCH.TD24 TD SCH (12:55)
[2018-02-28] MEDS: rOPINIRole HCL 1 MG TABLET PO SCH (20:25)
[2018-02-28] MEDS: SALINE FLUSH 10 ML DISP.SYRIN IV SCH (20:25)
[2018-02-28] MEDS: ACETAMINOPHEN 325 MG TABLET PO PRN (20:26)
[2018-02-28] MEDS: traMADol HCL 50 MG TABLET PO PRN (20:26)
[2018-03-01] MEDS: PANTOPRAZOLE SODIUM 40 MG TABLET PO SCH (06:19)
[2018-03-01] MEDS: MAGNESIUM OXIDE 400 MG TABLET PO SCH (08:59)
[2018-03-01] MEDS: DOCUSATE SODIUM 100 MG CAPSULE PO SCH ×2 (08:59→20:09)
[2018-03-01] MEDS: CALCIUM CARB 500 MG TAB.CHEW PO SCH ×2 (08:59→20:09)
[2018-03-01] MEDS: CLOPIDOGREL BISULFATE 75 MG TABLET PO SCH (08:59)
[2018-03-01] MEDS: CYANOCOBALAMIN (VITAMIN B12) 1,000 MCG TABLET PO SCH (09:00)
[2018-03-01] MEDS: MULTIVITAMIN 1 EACH TABLET PO SCH (09:00)
[2018-03-01] MEDS: POTASSIUM CHLORIDE 10 MEQ TABLET.ER PO SCH (09:00)
[2018-03-01] MEDS: LORATADINE 10 MG TABLET PO SCH (09:01)
[2018-03-01] MEDS: GABAPENTIN 100 MG CAPSULE PO SCH ×3 (09:01→18:11)
[2018-03-01] MEDS: NICOTINE 14mg PATCH.TD24 TD SCH (09:01)
[2018-03-01] MEDS: SALINE FLUSH 10 ML DISP.SYRIN IV SCH ×2 (10:20→20:09)
[2018-03-01] MEDS ORDERED: methylPREDNISolone SOD SUCC 125 MG/2 ML VIAL ONE (11:06)
[2018-03-01] MEDS ORDERED: 0.9 % SODIUM CHLORIDE 100 ML IV ONE (11:11)
[2018-03-01 15:02] LABS: BASOPHILS % 0.2 (0.0-1.5); MONOCYTES % 2.9 % (0.0-11.0); NEUTROPHILS # 9.3 # k/uL (1.4-7.7)
[2018-03-01] MEDS: rOPINIRole HCL 1 MG TABLET PO SCH (20:09)
[2018-03-01] MEDS: traMADol HCL 50 MG TABLET PO PRN (20:57)
[2018-03-02] MEDS: traMADol HCL 50 MG TABLET PO PRN ×2 (03:06→20:14)
[2018-03-02] MEDS: PANTOPRAZOLE SODIUM 40 MG TABLET PO SCH (06:08)
[2018-03-02] MEDS: MAGNESIUM OXIDE 400 MG TABLET PO SCH (08:41)
[2018-03-02] MEDS: MULTIVITAMIN 1 EACH TABLET PO SCH (08:42)
[2018-03-02] MEDS: CLOPIDOGREL BISULFATE 75 MG TABLET PO SCH (08:42)
[2018-03-02] MEDS: DOCUSATE SODIUM 100 MG CAPSULE PO SCH ×2 (08:42→20:14)
[2018-03-02] MEDS: GABAPENTIN 100 MG CAPSULE PO SCH ×3 (08:42→17:45)
[2018-03-02] MEDS: CALCIUM CARB 500 MG TAB.CHEW PO SCH ×2 (08:43→20:13)
[2018-03-02] MEDS: POTASSIUM CHLORIDE 10 MEQ TABLET.ER PO SCH (08:43)
[2018-03-02] MEDS: CYANOCOBALAMIN (VITAMIN B12) 1,000 MCG TABLET PO SCH (08:44)
[2018-03-02] MEDS: LORATADINE 10 MG TABLET PO SCH (08:44)
[2018-03-02] MEDS ORDERED: predniSONE 20 MG TABLET PO ONE (08:45)
[2018-03-02] MEDS: NICOTINE 14mg PATCH.TD24 TD SCH ×2 (08:45→09:09)
[2018-03-02] MEDS: SALINE FLUSH 10 ML DISP.SYRIN IV SCH ×2 (08:52→21:16)
--- NOTE | 2018-03-02 14:16 | Inpatient Progress Note ---
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 Denies: Dyspnea Cardiovascular: Denies: Chest Pain, Palpitations, Orthopnea, Paroxysmal Noc. Dyspnea, Edema Gastrointestinal: Denies: Nausea, Vomiting, Abdominal Pain, Diarrhea, Constipation, Melena (stool guiac positive), Hematochezia Musculoskeletal: Other (joint pain) Neurological: Weakness. Denies: Incoordination, Change in Speech, Confusion Objective - Exam Vitals and I&O: Vital Signs Temp 97.9 F 03/02/18 08:07 Pulse 95 H 03/02/18 09:00 Resp 18 03/02/18 09:00 BP 118/80 03/02/18 08:07 Pulse Ox 94 03/01/18 21:00 Intake & Output 03/01/18 03/02/18 03/02/18 23:59 11:59 23:59 Intake Total 1400 540 550 Balance 1400 540 550 Weight 56.699 kg Intake: IV 200 110 left forearm 200 110 Oral 1200 540 440 Other: Voiding Method Toilet Toilet # Voids 1 4 1 # Bowel Movements 2 General: Alert, Oriented to Person, Oriented to Place, Oriented to Time, Cooperative Neck: Supple, No JVD Lungs: Clear to auscultation, Normal air movement, Speaks full Sentences. No: Respiratory Distress, Wheezes, Rales, Rhonchi Cardiovascular: Regular rate, Normal S1, Normal S2, No murmurs Abdomen: Normal bowel sounds, Soft, No tenderness, No hepatospenomegaly, No masses Skin: Normal, [place], Warm Neurological: Normal speech, Strength Equal Bilat, Normal tone, Sensation intact, Cranial nerves 3-12 NL, Reflexes 2+. No: Normal gait Psych/Mental Status: Mental status NL, Mood NL, Appropriate Affect, Intact Judgment - Results Results: Laboratory Results WBC 10.70 K/ul (4.00-12.00) 03/01/18 14:25 RBC 4.00 M/ul (3.90-5.20) 03/01/18 14:25 Hgb 10.4 g/dL (12.0-16.0) L 03/01/18 14:25 Hct 32.5 % (34.5-46.5) L 03/01/18 14:25 MCV 81.0 fl (80.0-100.0) 03/01/18 14:25 MCH 26.0 pg (28.0-34.0) L 03/01/18 14:25 MCHC 32.1 g/dL (30.0-36.0) 03/01/18 14:25 RDW 16.2 % (11.3-14.3) H 03/01/18 14:25 Plt Count 338 K/mm3 (130-400) 03/01/18 14:25 Neut % (Auto) 87.1 % (39.0-79.0) H 03/01/18 14:25 Lymph % (Auto) 8.8 % (16.0-50.0) L 03/01/18 14:25 [place] % (Auto) 2.9 % (0.0-11.0) 03/01/18 14:25 Eos % (Auto) 1.0 % (0.0-6.8) 03/01/18 14:25 Baso % (Auto) 0.2 (0.0-1.5) 03/01/18 14:25 Neut # (Auto) 9.3 # k/uL (1.4-7.7) H 03/01/18 14:25 Lymph # (Auto) 0.9 # k/uL (0.6-4.0) 03/01/18 14:25 [place] # (Auto) 0.3 # k/uL (0.0-0.9) 03/01/18 14:25 Eos # (Auto) 0.1 # k/uL (0.0-0.6) 03/01/18 14:25 Baso # (Auto) 0.0 # k/uL (0.0-0.5) 03/01/18 14:25 Seg Neutrophils % 78 % (39-79) 02/25/18 19:40 Band Neutrophils % 2 % (0-12) 02/25/18 19:40 Lymphocytes % 4 % (16-50) L 02/25/18 19:40 Monocytes % 6 % (0-11) 02/25/18 19:40 Eosinophils % 5 % (0-7) 02/25/18 19:40 Basophils % 0 % (0-2) 02/25/18 19:40 Metamyelocytes % 2 % (0-0) H 02/25/18 19:40 Myelocytes % 2 % (0-0) H 02/25/18 19:40 Reactive Lymphocytes 1 % (0-5) 02/25/18 19:40 Dimorphic RBCs Present (NEGATIVE) H 02/25/18 19:40 Sodium 137 mmol/L (136-145) 02/25/18 19:40 Potassium 3.8 mmol/L (3.5-5.1) 02/25/18 19:40 Chloride 97 mmol/L (98-107) L 02/25/18 19:40 Carbon Dioxide 30 mmol/L (22-30) 02/25/18 19:40 BUN 12 mg/dL (7-17) 02/25/18 19:40 Creatinine 0.60 mg/dL (0.52-1.04) 02/25/18 19:40 Estimated Creat Clear 66 02/25/18 19:40 Est GFR ( Amer) > 60 (60-) 02/25/18 19:40 Est GFR (Non-Af Amer) > 60 (60-) 02/25/18 19:40 Glucose 154 mg/dL (74-106) H 02/25/18 19:40 Calcium 8.8 mg/dL (8.4-10.2) 02/25/18 19:40 Total Bilirubin 0.2 mg/dL (0.2-1.3) 02/25/18 19:40 AST 15 U/L (15-46) 02/25/18 19:40 ALT 21 U/L (13-69) 02/25/18 19:40 Alkaline Phosphatase 119 U/L (38-126) 02/25/18 19:40 Troponin I < 0.03 ng/mL (0.03-0.06) L 02/26/18 10:45 Total Protein 5.7 g/dL (6.3-8.2) L 02/25/18 19:40 Albumin 2.9 g/dL (3.5-5.0) L 02/25/18 19:40 Occult Blood (ICT) #2 Positive (NEGATIVE) H 03/01/18 12:53 Stool Guaiac Test Positive (NEGATIVE) H 02/28/18 14:45 Assessment/Plan - Assessment/Plan (1) GI bleeding Status: Acute Current Visit: Yes Assessment: possibly due to colitis although that seems to be getting better. 2/2 stools positive for blood. H and H stable. Patient is on PPI. (2) Colitis Status: Acute Current Visit: Yes Assessment: BM seem to be back to normal. No further diarrhea. (3) Essential hypertension Status: Acute Current Visit: No Assessment: stable on home meds (4) Fibromyalgia Status: Acute Current Visit: No Assessment: stable (5) Gait disturbance Status: Acute Current Visit: No Assessment: doing well with PT and OT. Patient wants to return to her home.
[2018-03-02] MEDS: rOPINIRole HCL 1 MG TABLET PO SCH (20:14)
[2018-03-03] MEDS: traMADol HCL 50 MG TABLET PO PRN ×3 (02:20→20:23)
[2018-03-03] MEDS: PANTOPRAZOLE SODIUM 40 MG TABLET PO SCH (06:07)
[2018-03-03] MEDS: ACETAMINOPHEN 325 MG TABLET PO PRN ×2 (07:35→20:15)
[2018-03-03] MEDS: CLOPIDOGREL BISULFATE 75 MG TABLET PO SCH (08:11)
[2018-03-03] MEDS: CALCIUM CARB 500 MG TAB.CHEW PO SCH ×2 (08:11→20:15)
[2018-03-03] MEDS: POTASSIUM CHLORIDE 10 MEQ TABLET.ER PO SCH (08:12)
[2018-03-03] MEDS: MAGNESIUM OXIDE 400 MG TABLET PO SCH (08:12)
[2018-03-03] MEDS: MULTIVITAMIN 1 EACH TABLET PO SCH (08:12)
[2018-03-03] MEDS: DOCUSATE SODIUM 100 MG CAPSULE PO SCH ×2 (08:12→20:15)
[2018-03-03] MEDS: GABAPENTIN 100 MG CAPSULE PO SCH ×3 (08:13→17:12)
[2018-03-03] MEDS: CYANOCOBALAMIN (VITAMIN B12) 1,000 MCG TABLET PO SCH (08:13)
[2018-03-03] MEDS: LORATADINE 10 MG TABLET PO SCH (08:15)
[2018-03-03] MEDS: NICOTINE 14mg PATCH.TD24 TD SCH (08:19)
[2018-03-03] MEDS: SALINE FLUSH 10 ML DISP.SYRIN IV SCH ×2 (08:19→20:17)
[2018-03-03] MEDS ORDERED: methylPREDNISolone SOD SUCC 40 MG/ML VIAL IVP SCH (09:00)
[2018-03-03] MEDS: rOPINIRole HCL 1 MG TABLET PO SCH (20:15)
[2018-03-04] MEDS: traMADol HCL 50 MG TABLET PO PRN ×2 (03:36→15:55)
[2018-03-04] MEDS: ACETAMINOPHEN 325 MG TABLET PO PRN (03:36)
[2018-03-04] MEDS: PANTOPRAZOLE SODIUM 40 MG TABLET PO SCH (06:10)
[2018-03-04] MEDS ORDERED: predniSONE 20 MG TABLET PO SCH (09:00)
[2018-03-04] MEDS: NICOTINE 14mg PATCH.TD24 TD SCH (10:55)
[2018-03-04] MEDS: MAGNESIUM OXIDE 400 MG TABLET PO SCH (10:57)
[2018-03-04] MEDS: DOCUSATE SODIUM 100 MG CAPSULE PO SCH (10:57)
[2018-03-04] MEDS: LORATADINE 10 MG TABLET PO SCH (10:57)
[2018-03-04] MEDS: POTASSIUM CHLORIDE 10 MEQ TABLET.ER PO SCH (10:57)
[2018-03-04] MEDS: CALCIUM CARB 500 MG TAB.CHEW PO SCH (10:58)
[2018-03-04] MEDS: CYANOCOBALAMIN (VITAMIN B12) 1,000 MCG TABLET PO SCH (10:58)
[2018-03-04] MEDS: GABAPENTIN 100 MG CAPSULE PO SCH ×2 (10:58→13:40)
[2018-03-04] MEDS: CLOPIDOGREL BISULFATE 75 MG TABLET PO SCH (10:58)
[2018-03-04] MEDS: SALINE FLUSH 10 ML DISP.SYRIN IV SCH (10:58)
[2018-03-04] MEDS: MULTIVITAMIN 1 EACH TABLET PO SCH (10:58)
[2018-03-04 17:01] VITALS: BP 131/51
--- NOTE | 2018-03-08 07:48 | Discharge Summary ---
Discharge Summary - Discharge Sumary History of Present Illness: 87yo white female who recently has lumbar spinal fusion done for spinal stenosis. She was doing well and was at home when she started to have some nausea and vomiting associated with diarrhea. Patient was seen and felt to have significant dehydration. She was noted to be in some acute renal failure that was felt to be prerenal. She was felt to have colitis and she was admitted to the hospital and was started on IV fluids and supportive care. Her Hgb and Hct did drop with hydration and she was transfused two units of PRBC. She was transferred to SNF for rehab services because of increase fall risk associated with her recent illness and surgery. Condition at Discharge: Stable Home Medications: Ambulatory Orders Medication Instructions Recorded Albuterol Sulfate [Proair HFA] 2 inh IH Q6 PRN 12/28/17 Calcium Carb 500/Vit D 200 1 tab PO BID 12/28/17 [CALTRATE WITH VIT D] Cyanocobalamin (Vitamin B-12) 1,000 mcg PO D 12/28/17 [Vitamin B-12] Docusate Sodium [Colace] 100 mg PO DAILY PRN 12/28/17 Gabapentin 100 mg PO BID 12/28/17 Ginkgo Biloba 120 mg PO D 12/28/17 Magnesium Oxide [Magnesium] 250 mg PO BID 12/28/17 Multivit-Minerals/Folic Acid [One 0.4 mg PO D 12/28/17 Daily Womens 50 Plus Tab] Potassium 99 mg PO BID 12/28/17 Pantoprazole Sodium [Protonix] 40 mg PO 717 01/13/18 Acetaminophen [Tylenol Extra 500 mg PO Q4 PRN tablet 01/14/18 Strength] Magnesium Hydroxide [Milk of 2,400 mg PO DAILY PRN unit dose 01/14/18 Magnesia] cup Fexofenadine/Pseudoephedrine 1 each PO BID 02/21/18 [Tiffany-D 24 Hour Tablet] Propranolol HCl [Inderal] 10 mg PO BID 02/21/18 Consultations this Visit: None Procedures this Visit: None Allergies/Adverse Reactions: Allergies Allergy/AdvReac Type Severity Reaction Status Date / Time garlic Allergy Verified 02/21/18 16:21 Penicillins Allergy Verified 02/21/18 16:21 Discharge Summary: Patient was started on PT and OT services. She participated well with them. Patient's diarrhea and appetite continued to improve during her SNF stay. Stool for occult blood were done and were positive 2/3. Patient's hemoglobin remained stable. At the time of discharge it was felt that the patient could return home and be followed by home health services. Patient was discharged in stable condition at this time.
== END 2018-03-04 16:35 | disposition home or self-care (01) | DRG 92 ==
LOC: SOUTH 09:38
PROVIDERS: ADMIT Family Medicine; ATTEND Family Medicine
DX: R26.9 Unspecified abnormalities of gait and mobility (principal); K92.2 Gastrointestinal hemorrhage, unspecified; K52.9 Noninfective gastroenteritis and colitis, unspecified; I10 Essential (primary) hypertension; M79.7 Fibromyalgia
CPT/HCPCS: 36415; 74177; 80053; 82270; 84484; 85025; 93005; 97110; 97112; 97116; 97530; 97535; A9270; J1030; J2930; J7030; 87507; J2920; Q9967; S1016

== ENCOUNTER 2018-04-12 16:15 | Outpatient (CLI) | payer OTHER ==
[2018-04-12 16:38] LABS: BASOPHILS % 0.4 (0.0-1.5); EOSINOPHILS % 6.4 % (0.0-6.8); MEAN CORPUSCULAR HEMOGLOBIN 26.9 pg (28.0-34.0); NEUTROPHILS # 2.6 # k/uL (1.4-7.7)
[2018-04-12 17:03] LABS: eGFR (Non-African) > 60
== END 2018-04-12 16:16 ==
LOC: LABRHC 16:15
PROVIDERS: ATTEND Family Medicine
DX: I10 Essential (primary) hypertension (principal); K92.2 Gastrointestinal hemorrhage, unspecified
CPT/HCPCS: 36415; 80053; 85025

== ENCOUNTER 2018-08-06 10:31 | Inpatient (IN) | payer OTHER ==
[2018-08-06 10:59] VITALS: BMI 21.3
[2018-08-06] MEDS ORDERED: AZITHROMYCIN 500 MG VIAL IV ONE (12:36)
[2018-08-06] MEDS ORDERED: 0.9 % SODIUM CHLORIDE 250 ML IV ONE (12:36)
[2018-08-06 12:37] LABS: MEAN CORPUSCULAR HEMOGLOBIN 27.6 pg (28.0-34.0)
[2018-08-06 12:38] LABS: BASOPHILS % 0.5 (0.0-1.5); MONOCYTES % 7.5 % (0.0-11.0); NEUTROPHILS # 3.7 # k/uL (1.4-7.7)
[2018-08-06 12:55] LABS: eGFR (Non-African) > 60
--- NOTE | 2018-08-06 13:11 | History and Physical Report ---
History of Present Illnes - History of Present Illness Reason for Visit: Shortness of Breath History of Present Illness: Patient is a 87-year-old female admitted from the clinic. She presented to the clinic short of breath- ambulating to the room she was tachypneic > 30 resp./min. Oxygen was 86-88% but immediately bumped up to 92% when sitting for a minute. She states that she has been increasingly been getting more short of breath over the last week- she thought that she would get better but has not- she has had a productive cough with green sputum, chills, decreased appetite and fatigue. Will admit patient patient to r/o resp. infection, dehydration, cause of chills, and weakness. Will get blood cultures due to fever/chills, CBC to check for infection, CXR to rule out pulmonary process due to low oxygen saturations and tachypnea, CMP to check kidney function/dehydration due to poor oral intake. We start on Duonebs every 4 hours due to decreased breath sounds, shortness of breath, and low SAO2. Will implement incentive spirometry and IV steroids due to history of COPD and wheezing. 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: Peripheral neuropathy, TIA, Other (KIM, RLS, migraine headaches, ) Gastrointestinal: GERD Musculoskeletal: Osteoarthritis, Other (sciatica) Rheumatologic: Fibromyalgia ENT: Other (macular degeneration, decrease hearing acuity, ) Renal/: Acute renal failure - Past Surgical History Past Surgical History: Appendectomy, Breast Biopsy, Cholecystectomy, Cataract Removal, Hysterectomy, Other (cataract extreaction, Cervical diskectomy, C5-6 fusion, lumpectomy right breast) - Past Family History Mother Family History: Father Family History: - Past Social History Smoke: Quit Occupation: retired Alcohol: Occassional Drugs: None Lives: Alone Domestic Violence: Negative - Health Maintenance Health Maintenance: Cholesterol, Influenza Vaccine, Pneumococcal Vaccine, Mammogram Influenza Vaccine: Current for this Influenza Season Pneumonia Vaccine: Yes Review of Systems - Review of Systems Constitutional: Fever, Chills, Weakness Eyes: negative: conjunctivae inflammation, eyelid inflammation ENT: Nose Discharge. negative: Ear Pain, Ear Discharge, Throat Pain Respiratory: Cough, Shortness of Breath, SOB with Excertion, Wheezing Cardiovascular: Palpitations, Paroxysmal Noc. Dyspnea Gastrointestinal: negative: Nausea, Vomiting, Abdominal Pain Genitourinary: negative: Dysuria Musculoskeletal: Back Pain (chronic) Skin: negative: Rash Neurological: Weakness - Medications/Allergies Allergies/Adverse Reactions: Allergies Allergy/AdvReac Type Severity Reaction Status Date / Time garlic Allergy Verified 02/21/18 16:21 Penicillins Allergy Verified 02/21/18 16:21 Current Inpatient Medications: Current Inpatient Medications Albuterol/Ipratropium (Duoneb) 3 ml NEB Q4 HEATHER Sodium Chloride (Normal Saline) 1,000 mls @ 75 mls/hr IV Q10H HEATHER Azithromycin 500 mg/ Sodium (Chloride) 250 mls @ 125 mls/hr IV Q24H [facility] Stop: 08/16/18 12:29 Levofloxacin/Dextrose (Levaquin) 500 mg IV DAILY [facility] Stop: 08/20/18 14:29 Exam - Exam Vital Signs: Vital Signs (72 hours) 08/06/18 08/06/18 08/06/18 10:39 10:54 10:56 Temperature 98.8 F 98.8 F Pulse Rate 91 H Pulse Rate [ 84 84 Left] Respiratory 20 20 Rate Blood Pressure 136/67 136/67 [Left Arm] O2 Sat by Pulse 95 95 95 Oximetry 08/06/18 10:57 Temperature 98.8 F Pulse Rate Pulse Rate [ 84 Left] Respiratory 20 Rate Blood Pressure 136/67 [Left Arm] O2 Sat by Pulse 95 Oximetry General: Alert, Oriented to Person, Oriented to Place, Oriented to Time, Cooperative, Moderate distress, Thin HEENT: PERRLA, Other (mucous) Neck: Normal Range of Motion Carotids: No bruit Lungs: Wheezes, Accessory Muscle Use Cardiovascular: Normal S1, Normal S2, Tachycardia Peripheral Edema: None Peripheral Pulses: 2+ Abdomen: Normal bowel sounds, Soft, No tenderness Integumentary: Warm, Dry, Pale, Decreased Turgor Extremities: Normal pulses, No tenderness/swelling Neurological: Strength Equal Bilat, Sensation intact, Generalized Weakness Psych/Mental Status: Mental status NL, Mood NL, Appropriate Affect, Intact Judgment - Laboratory Results Laboratory Results: Laboratory Results 08/06/18 08/06/18 12:20 12:20 WBC 5.90 RBC 4.59 Hgb 12.7 Hct 38.8 MCV 85.0 MCH 27.6 L MCHC 32.6 RDW 14.2 Plt Count 258 Neut % (Auto) 62.1 Lymph % (Auto) 26.9 [place] % (Auto) 7.5 Eos % (Auto) 3.0 Baso % (Auto) 0.5 Neut # (Auto) 3.7 Lymph # (Auto) 1.6 [place] # (Auto) 0.4 Eos # (Auto) 0.2 Baso # (Auto) 0.0 Sodium 143 Potassium 4.0 Chloride 106 Carbon Dioxide 32 H BUN 13 Creatinine 0.67 Estimated Creat Clear 54 Est GFR ( Amer) > 60 Est GFR (Non-Af Amer) > 60 Glucose 112 H Calcium 10.0 Total Bilirubin 0.1 L AST 43 ALT < 6 L Alkaline Phosphatase 120 Total Protein 8.2 Albumin 4.3 Assessment/Plan - Assessment/Plan (1) COPD (chronic obstructive pulmonary disease) Status: Acute Current Visit: Yes Qualifiers: COPD type: COPD with acute exacerbation Qualified Code(s): J44.1 - Chronic obstructive pulmonary disease with (acute) exacerbation Plan: Will do HFN every 4 hours, Incentive spirometry, IV steroids, will get CXR (2) Acute renal failure Status: Acute Current Visit: No Plan: Due to oral intake and dry mucous membranes will start IVF at a slow rate to prevent fluid overload (3) Essential hypertension Status: Acute Current Visit: No Plan: Will continue home mediation and monitor BP frequently (4) Upper respiratory infection, acute Status: Acute Current Visit: Yes Plan: Will get blood cultures, CBC to rule out infection, will get influenza testing, will start antibiotics x 2, IV steroids, duonebs every 4 hours, and incentive spirometry- (5) TIA (transient ischemic attack) Status: Acute Current Visit: No Qualifiers: Transient cerebral ischemia type: unspecified Qualified Code(s): G45.9 - Transient cerebral ischemic attack, unspecified Plan: Will continue patients Plavix due to history of TIA's VTE Assessment - RISK FACTOR SCORE VTE RISK FACTOR SCORES: AGE OVER 60 YEARS, ACUTE RESPIRATORY FAILURE/SEVERE COPD - RISK VTE MODERATE RISK: SCORE OF 2 (RISK PROXIMAL DVT 2-4%) PROPHYAXIS NEEDED (pt is currently on Plavix, will monitor closely, and use incentive spirometer)
[2018-08-06] MEDS: AZITHROMYCIN 500 MG in 0.9 % SODIUM CHLORIDE 250 ML IV SCH (13:36)
[2018-08-06] MEDS: 0.9 % SODIUM CHLORIDE 1,000 ML IV SCH (13:36)
--- NOTE | 2018-08-06 14:34 | Diagnostic Imaging Report ---
[facility] [address] [facility] [address] [place], [place]. [address] Report Submission Date: Aug 06, 2018 1:36:56 PM CDT Patient Study Name: BHANU BACON Date: Aug 06, 2018 12:13:28 PM CDT Modality Type: DX Gender: F Description: CHEST 2VIEW : [birth year] Institution: [facility] Physician: [facility] PA and lateral chest History: Short of breath and wheezing PA and lateral chest dated August 06, 2018 is compared with February 22, 2018 There is a calcified granuloma at the mid left lung. Otherwise, the lungs are clear. Heart size is normal. The lungs are hyperinflated consistent with COPD. There is no pleural effusion. Impression: COPD. No active disease. Electronically signed on Aug 06, 2018 1:36:56 PM CDT by: Cecilia FULTON
[2018-08-06] MEDS: IPRATROPIUM/ALBUTEROL SULFATE 3 ML AMPUL.NEB NEB SCH ×3 (14:51→21:07)
[2018-08-06] MEDS ORDERED: methylPREDNISolone SOD SUCC 125 MG/2 ML VIAL IVP ONE (15:10)
[2018-08-06] MEDS ORDERED: DOCUSATE SODIUM 100 MG CAPSULE PO PRN (15:11)
[2018-08-06] MEDS ORDERED: ACETAMINOPHEN 500 MG TABLET PO PRN (15:11)
[2018-08-06] MEDS ORDERED: MAGNESIUM HYDROXIDE 2,400 MG/30 ML UDC PO PRN (15:11)
[2018-08-06] MEDS: LEVOFLOXACIN IN DEXTROSE 5 % 500 MG/100 ML BAG IV SCH (15:20)
[2018-08-06] MEDS ORDERED: methylPREDNISolone SOD SUCC 125 MG/2 ML VIAL ONE (15:21)
[2018-08-06] MEDS ORDERED: PROPRANOLOL HCL 20 MG TABLET PO ONE (20:05)
[2018-08-06] MEDS ORDERED: GABAPENTIN 100 MG CAPSULE ONE (20:06)
[2018-08-06] MEDS ORDERED: traZODone HCL 50 MG TABLET ONE (20:06)
[2018-08-06] MEDS ORDERED: rOPINIRole HCL 1 MG TABLET ONE (20:07)
[2018-08-06] MEDS ORDERED: PANTOPRAZOLE SODIUM 40 MG TABLET.DR ONE (20:07)
[2018-08-06] MEDS ORDERED: methylPREDNISolone SOD SUCC 40 MG/ML VIAL ONE (20:17)
[2018-08-06] MEDS ORDERED: traMADol HCL 50 MG TABLET ONE (20:18)
[2018-08-06] MEDS ORDERED: CALCIUM/VIT D 500MG/200IU TABLET PO SCH (21:00)
[2018-08-06] MEDS: traMADol HCL 50 MG TABLET PO PRN (21:10)
[2018-08-06] MEDS: PROPRANOLOL HCL 20 MG TABLET PO SCH (21:11)
[2018-08-06] MEDS: traZODone HCL 50 MG TABLET PO SCH (21:11)
[2018-08-06] MEDS: GABAPENTIN 100 MG CAPSULE PO SCH (21:11)
[2018-08-06] MEDS: PANTOPRAZOLE SODIUM 40 MG TABLET.DR PO SCH (21:11)
[2018-08-06] MEDS: methylPREDNISolone SOD SUCC 40 MG/ML VIAL IVP SCH (21:12)
[2018-08-06] MEDS: rOPINIRole HCL 1 MG TABLET PO SCH (21:12)
[2018-08-07] MEDS ORDERED: ACETAMINOPHEN 500 MG TABLET ONE (01:13)
[2018-08-07] MEDS: IPRATROPIUM/ALBUTEROL SULFATE 3 ML AMPUL.NEB NEB SCH ×6 (01:47→20:58)
[2018-08-07] MEDS: 0.9 % SODIUM CHLORIDE 1,000 ML IV SCH ×3 (03:55→20:23)
--- NOTE | 2018-08-07 07:25 | Inpatient Progress Note ---
Subjective - Required Recertification Statement I anticipate X number of days because-include discharge plan: 1 - Review of Systems Events since last encounter: Patient did not rest well last night- I contribute this to the IV steroids- Trazodone 50 mg was ordered last night to help her rest. She is continuing with the HFN every 4 hours- she still has some SOA with exertion but has greatly improved. Will continue with current treatment and patient may be able to discharge home tomorrow. General: Fatigue HEENT: Denies: Head Aches, Eye Pain, Sore Throat Pulmonary: Dyspnea, Cough Cardiovascular: Paroxysmal Noc. Dyspnea. Denies: Edema, Light Headedness Gastrointestinal: Denies: Nausea, Vomiting, Abdominal Pain Genitourinary: Denies: Dysuria Musculoskeletal: Denies: Back Pain Neurological: Weakness Objective - Exam Vitals and I&O: Vital Signs Temp 98.3 F 08/07/18 05:37 Pulse 86 08/07/18 05:37 Resp 16 08/07/18 05:37 BP 142/78 08/07/18 05:37 Pulse Ox 96 08/07/18 05:37 Intake & Output 08/06/18 08/06/18 08/07/18 11:59 23:59 11:59 Intake Total 690 345 Output Total 500 400 Balance 190 -55 Weight 51.256 kg Intake: IV 150 225 Right Forearm 150 225 Oral 540 120 Output: Urine 500 400 Other: Voiding Method Toilet Toilet Toilet # Voids 1 # Bowel Movements 0 General: Alert, Oriented to Person, Oriented to Place, Oriented to Time, Cooperative, Mild distress HEENT: PERRLA, Mouth Mucous membr. moist/[place], Nose Mucous membr. moist/[place] Neck: Supple, +2 carotid pulse wo bruit Lungs: Speaks full Sentences, Wheezes, Rhonchi Cardiovascular: Normal S1, Normal S2 Abdomen: Normal bowel sounds, Soft, No tenderness Extremities: No edema, Normal pulses, No tenderness/swelling Skin: Normal, Warm, Dry, Pale Neurological: Normal gait, Normal speech, Strength Equal Bilat, Generalized Weakness Psych/Mental Status: Mental status NL, Mood NL, Appropriate Affect, Intact Judgment - Results Results: Laboratory Results WBC 5.90 K/ul (4.00-12.00) 08/06/18 12:20 RBC 4.59 M/ul (3.90-5.20) 08/06/18 12:20 Hgb 12.7 g/dL (12.0-16.0) 08/06/18 12:20 Hct 38.8 % (34.5-46.5) 08/06/18 12:20 MCV 85.0 fl (80.0-100.0) 08/06/18 12:20 MCH 27.6 pg (28.0-34.0) L 08/06/18 12:20 MCHC 32.6 g/dL (30.0-36.0) 08/06/18 12:20 RDW 14.2 % (11.3-14.3) 08/06/18 12:20 Plt Count 258 K/mm3 (130-400) 08/06/18 12:20 Neut % (Auto) 62.1 % (39.0-79.0) 08/06/18 12:20 Lymph % (Auto) 26.9 % (16.0-50.0) 08/06/18 12:20 [place] % (Auto) 7.5 % (0.0-11.0) 08/06/18 12:20 Eos % (Auto) 3.0 % (0.0-6.8) 08/06/18 12:20 Baso % (Auto) 0.5 (0.0-1.5) 08/06/18 12:20 Neut # (Auto) 3.7 # k/uL (1.4-7.7) 08/06/18 12:20 Lymph # (Auto) 1.6 # k/uL (0.6-4.0) 08/06/18 12:20 [place] # (Auto) 0.4 # k/uL (0.0-0.9) 08/06/18 12:20 Eos # (Auto) 0.2 # k/uL (0.0-0.6) 08/06/18 12:20 Baso # (Auto) 0.0 # k/uL (0.0-0.5) 08/06/18 12:20 Sodium 143 mmol/L (136-145) 08/06/18 12:20 Potassium 4.0 mmol/L (3.5-5.1) 08/06/18 12:20 Chloride 106 mmol/L (98-107) 08/06/18 12:20 Carbon Dioxide 32 mmol/L (22-30) H 08/06/18 12:20 BUN 13 mg/dL (7-17) 08/06/18 12:20 Creatinine 0.67 mg/dL (0.52-1.04) 08/06/18 12:20 Estimated Creat Clear 54 08/06/18 12:20 Est GFR ( Amer) > 60 (60-) 08/06/18 12:20 Est GFR (Non-Af Amer) > 60 (60-) 08/06/18 12:20 Glucose 112 mg/dL (74-106) H 08/06/18 12:20 Calcium 10.0 mg/dL (8.4-10.2) 08/06/18 12:20 Total Bilirubin 0.1 mg/dL (0.2-1.3) L 08/06/18 12:20 AST 43 U/L (15-46) 08/06/18 12:20 ALT < 6 U/L (13-69) L 08/06/18 12:20 Alkaline Phosphatase 120 U/L (38-126) 08/06/18 12:20 Total Protein 8.2 g/dL (6.3-8.2) 08/06/18 12:20 Albumin 4.3 g/dL (3.5-5.0) 08/06/18 12:20 Influenza Type A Ag Negative (NEGATIVE) 08/06/18 Unknown Influenza Type B Ag Negative (NEGATIVE) 08/06/18 Unknown Assessment/Plan - Assessment/Plan (1) COPD (chronic obstructive pulmonary disease) Status: Acute Current Visit: Yes Qualifiers: COPD type: COPD with acute exacerbation Qualified Code(s): J44.1 - Chronic obstructive pulmonary disease with (acute) exacerbation Assessment: Dyspnea with exertion- lungs are tight throughout with fine wheezes- supplemental oxygen Plan: Will continue with IV steroids every 12 hours, Duonebs every 4 hours, use of incentive spirometer, (2) Bronchitis Status: Acute Current Visit: No Assessment: Lungs are diminished throughout- productive cough with green sputum- chills at home Plan: Will treat for possible bronchitis vs pneumonia- blood cultures pending, IV antibiotics x 2, HFN every 4 hours, Incentive spirometry, supplemental oxygen
[2018-08-07] MEDS ORDERED: PROPRANOLOL HCL 20 MG TABLET PO ONE ×2 (09:24→20:11)
[2018-08-07] MEDS ORDERED: CLOPIDOGREL BISULFATE 75 MG TABLET ONE (09:25)
[2018-08-07] MEDS ORDERED: methylPREDNISolone SOD SUCC 40 MG/ML VIAL ONE ×2 (09:25→20:12)
[2018-08-07] MEDS ORDERED: GABAPENTIN 100 MG CAPSULE ONE ×2 (09:25→20:12)
[2018-08-07] MEDS ORDERED: PANTOPRAZOLE SODIUM 40 MG TABLET.DR ONE ×2 (09:25→20:11)
[2018-08-07] MEDS ORDERED: CYANOCOBALAMIN (VITAMIN B12) 1,000 MCG TABLET PO ONE (09:25)
[2018-08-07] MEDS: GABAPENTIN 100 MG CAPSULE PO SCH ×2 (09:37→20:27)
[2018-08-07] MEDS: CLOPIDOGREL BISULFATE 75 MG TABLET PO SCH (09:37)
[2018-08-07] MEDS: PROPRANOLOL HCL 20 MG TABLET PO SCH ×2 (09:37→20:26)
[2018-08-07] MEDS: PANTOPRAZOLE SODIUM 40 MG TABLET.DR PO SCH ×2 (09:38→20:27)
[2018-08-07] MEDS: CYANOCOBALAMIN (VITAMIN B12) 1,000 MCG TABLET PO SCH (09:38)
[2018-08-07] MEDS: methylPREDNISolone SOD SUCC 40 MG/ML VIAL IVP SCH ×2 (09:39→20:27)
[2018-08-07] MEDS: LEVOFLOXACIN IN DEXTROSE 5 % 500 MG/100 ML BAG IV SCH (09:43)
[2018-08-07] MEDS: AZITHROMYCIN 500 MG in 0.9 % SODIUM CHLORIDE 250 ML IV SCH (12:30)
[2018-08-07] MEDS ORDERED: traZODone HCL 50 MG TABLET ONE (20:11)
[2018-08-07] MEDS ORDERED: rOPINIRole HCL 1 MG TABLET ONE (20:11)
[2018-08-07] MEDS: traZODone HCL 50 MG TABLET PO SCH (20:25)
[2018-08-07] MEDS: rOPINIRole HCL 1 MG TABLET PO SCH (20:27)
[2018-08-07] MEDS ORDERED: traMADol HCL 50 MG TABLET ONE (20:30)
[2018-08-07] MEDS: traMADol HCL 50 MG TABLET PO PRN (20:32)
[2018-08-08] MEDS: IPRATROPIUM/ALBUTEROL SULFATE 3 ML AMPUL.NEB NEB SCH ×3 (00:59→09:44)
--- NOTE | 2018-08-08 04:36 | Discharge Summary ---
Discharge Summary - Discharge [facility] Admission Date: 08/06/18 Discharge Date: 08/08/18 History of Present Illness: Patient is a 87-year-old female admitted from the clinic. She presented to the clinic short of breath- ambulating to the room she was tachypneic > 30 resp./ min. Oxygen was 86-88% but immediately bumped up to 92% when sitting for a minute. She states that she has been increasingly been getting more short of breath over the last week- she thought that she would get better but has not- she has had a productive cough with green sputum, chills, decreased appetite and fatigue. Will admit patient patient to r/o resp. infection, dehydration, cause of chills, and weakness. Will get blood cultures due to fever/chills, CBC to check for infection, CXR to rule out pulmonary process due to low oxygen saturations and tachypnea, CMP to check kidney function/dehydration due to poor oral intake. We start on Duonebs every 4 hours due to decreased breath sounds, shortness of breath, and low SAO2. Will implement incentive spirometry and IV steroids due to history of COPD and wheezing. Condition at Discharge: Stable Home Medications: Ambulatory Orders Medication Instructions Recorded Albuterol Sulfate [Proair HFA] 2 inh IH Q6 PRN 12/28/17 Calcium Carb 500/Vit D 200 1 tab PO BID 12/28/17 [CALTRATE WITH VIT D] Cyanocobalamin (Vitamin B-12) 1,000 mcg PO D 12/28/17 [Vitamin B-12] Docusate Sodium [Colace] 100 mg PO DAILY PRN 12/28/17 Ginkgo Biloba 120 mg PO D 12/28/17 Magnesium Oxide [Magnesium] 250 mg PO BID 12/28/17 Multivit-Minerals/Folic Acid [One 0.4 mg PO D 12/28/17 Daily Womens 50 Plus Tab] Potassium 99 mg PO BID 12/28/17 Acetaminophen [Tylenol Extra 500 mg PO Q4 PRN tablet 01/14/18 Strength] Magnesium Hydroxide [Milk of 2,400 mg PO DAILY PRN unit dose 01/14/18 Magnesia] cup Fexofenadine/Pseudoephedrine 1 each PO DAILY 02/21/18 [Tiffany-D 24 Hour Tablet] Propranolol HCl [Inderal] 10 mg PO BID 02/21/18 Azithromycin [Zithromax] 250 mg PO DAILY #4 tablet 08/08/18 Levofloxacin [Levaquin] 500 mg PO DAILY #7 tablet 08/08/18 Prednisone 20 mg PO DAILY #17 tablet 08/08/18 Consultations this Visit: None Procedures this Visit: None Allergies/Adverse Reactions: Allergies Allergy/AdvReac Type Severity Reaction Status Date / Time garlic Allergy Verified 02/21/18 16:21 Penicillins Allergy Verified 02/21/18 16:21 Discharge Summary: Patient is an 87-year-old female who was admitted and treated for COPD and possible resp. infection. She is feeling much better today and feels ready to go home. She received IV steroids, IV antibiotics x 2, and HFN every 4 hours. She will be discharged home on a tapering dose of steroids, antibiotics, and HFN treatments. She is to follow up with PCP next week for follow up. - Final Diagnosis (1) COPD (chronic obstructive pulmonary disease) Problems: Stable- will send home on tapering dose of steroids Right or Left: Right (2) Acute renal failure Problems: Slowly hydrated- improved Right or Left: Right (3) Essential hypertension Problems: Stable Right or Left: Right (4) Upper respiratory infection, acute Problems: Will continue home on oral antibiotics Right or Left: Right (5) TIA (transient ischemic attack) Problems: Stable- continue on home med of Plavix Right or Left: Right
[2018-08-08 06:40] LABS: eGFR (Non-African) > 60
[2018-08-08 06:41] LABS: MEAN CORPUSCULAR HEMOGLOBIN 27.6 pg (28.0-34.0)
[2018-08-08 06:42] LABS: MONOCYTES % 5 % (0-11); SEGMENTED NEUTROPHILS % 85 % (39-79)
[2018-08-08 06:43] LABS: PLT EST. EST. AGREES W/PLT CT
--- NOTE | 2018-08-08 07:11 | Diagnostic Imaging Report ---
ZOYA FELIX [facility] [address] [facility] [address] [address] Report Submission Date: Aug 08, 2018 6:51:49 AM CDT Patient Study Name: BHANU BACON Date: Aug 08, 2018 6:03:43 AM CDT Modality Type: DX Gender: F Description: CHEST 2VIEW : [birth year] Institution: [facility] Physician: ZOYA FELIX PA and lateral chest History: COPD PA and lateral chest dated August 08, 2018 is compared with August 06, 2018. Findings consistent with COPD are again noted. There is a calcified granuloma in the mid left lung. Heart size is normal. There is no infiltrate or pleural effusion. 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 No active disease. No change compared with August 06, 2018. Electronically signed on Aug 08, 2018 6:51:49 AM CDT by: Cecilia FULTON
[2018-08-08 09:05] VITALS: BP 154/57
[2018-08-08] MEDS ORDERED: GABAPENTIN 100 MG CAPSULE ONE (09:31)
[2018-08-08] MEDS ORDERED: PROPRANOLOL HCL 20 MG TABLET PO ONE (09:31)
[2018-08-08] MEDS ORDERED: PANTOPRAZOLE SODIUM 40 MG TABLET.DR ONE (09:32)
[2018-08-08] MEDS ORDERED: CLOPIDOGREL BISULFATE 75 MG TABLET ONE (09:33)
[2018-08-08] MEDS ORDERED: CYANOCOBALAMIN (VITAMIN B12) 1,000 MCG TABLET PO ONE (09:33)
[2018-08-08] MEDS ORDERED: methylPREDNISolone SOD SUCC 40 MG/ML VIAL ONE (09:33)
[2018-08-08] MEDS: GABAPENTIN 100 MG CAPSULE PO SCH (09:40)
[2018-08-08] MEDS: CLOPIDOGREL BISULFATE 75 MG TABLET PO SCH (09:40)
[2018-08-08] MEDS: LEVOFLOXACIN IN DEXTROSE 5 % 500 MG/100 ML BAG IV SCH (09:40)
[2018-08-08] MEDS: PROPRANOLOL HCL 20 MG TABLET PO SCH (09:40)
[2018-08-08] MEDS: methylPREDNISolone SOD SUCC 40 MG/ML VIAL IVP SCH (09:41)
[2018-08-08] MEDS: PANTOPRAZOLE SODIUM 40 MG TABLET.DR PO SCH (09:41)
[2018-08-08] MEDS: CYANOCOBALAMIN (VITAMIN B12) 1,000 MCG TABLET PO SCH (09:42)
[2018-08-08] MEDS: AZITHROMYCIN 500 MG in 0.9 % SODIUM CHLORIDE 250 ML IV SCH (14:55)
== END 2018-08-08 12:45 | disposition home or self-care (01) | DRG 202 ==
LOC: SOUTH 10:31
PROVIDERS: ADMIT Nurse Practitioner Family; ATTEND Nurse Practitioner Family
DX: J40 Bronchitis, not specified as acute or chronic (principal); J44.1 Chronic obstructive pulmonary disease with (acute) exacerbation; J06.9 Acute upper respiratory infection, unspecified; I10 Essential (primary) hypertension; R53.1 Weakness; Z86.73 Personal history of transient ischemic attack (TIA), and cerebral infarction without residual deficits
CPT/HCPCS: 71046; 80053; 83880; 85025; 87040; 87400; 93005; J0456; J1030; J1956; J2930; J7030; J7050; 99222; 99231; 99238; J2920; S1016

== ENCOUNTER 2018-09-23 13:53 | Outpatient (CLI) | payer OTHER ==
[2018-09-23 15:07] LABS: MEAN CORPUSCULAR HEMOGLOBIN 28.6 pg (28.0-34.0)
[2018-09-23 15:08] LABS: BASOPHILS % 0.3 % (0.0-1.5); MONOCYTES % 11.4 % (0.0-11.0)
== END 2018-09-23 13:55 ==
LOC: LAB 13:53
PROVIDERS: ATTEND Family Medicine
DX: R10.30 Lower abdominal pain, unspecified (principal)
CPT/HCPCS: 36415; 80053; 85025

== ENCOUNTER 2018-10-18 12:41 | Outpatient (CLI) | payer OTHER ==
[2018-11-02 14:05] LABS: eGFR (Non-African) > 60
[2018-11-02 14:06] LABS: APPEARANCE,URINE CLEAR (CLEAR); BASOPHILS % 0.6 % (0.0-1.5); COLOR,URINE YELLOW (YELLOW); NEUTROPHILS # 2.6 # k/uL (1.4-7.7); OCCULT BLOOD,URINE NEGATIVE (NEGATIVE); UROBILINOGEN URINE 0.2 Eu (0.2-1.0)
--- NOTE | 2018-11-05 11:16 | Diagnostic Imaging Report ---
JIMENEZ DUENAS [facility] [address] Pending [facility] To [facility] [address] [place], [place]. [address] Report Submission Date: Oct 18, 2018 1:30:56 PM CDT Patient Study Name: BHANU BACON Date: Oct 18, 2018 12:59:46 PM CDT Modality Type: DX Gender: F Description: ABD SERIES PA CHEST : [birth year]24[birth year] Institution: [facility] Physician: JIMENEZ DUENAS PA chest and obstructive series History: Lower abdominal pain and bloating for 2 months PA chest dated October 18, 2018 demonstrates a normal cardiomediastinal silhouette. There is mild aortic atherosclerosis and there is a calcified granuloma at the mid left lung. Otherwise, the lungs are clear. There is no pleural effusion. Postoperative findings of the lumbar spine are present. Hepatic and splenic shadows are normal in size. There has been a cholecystectomy. There is mildly increased stool in the colon. Otherwise, the bowel gas pattern is nonobstructive. Aortoiliac atherosclerosis is present. Impression: No acute cardiopulmonary process. Postoperative findings of the lumbar spine. Status post cholecystectomy. Mildly increased stool in the colon. Electronically signed on Oct 18, 2018 1:30:56 PM CDT by: Cecilia FULTON
== END 2018-10-18 12:46 | disposition home or self-care (01) ==
LOC: LAB 12:41
PROVIDERS: ATTEND Family Medicine
DX: R10.30 Lower abdominal pain, unspecified (principal); R14.0 Abdominal distension (gaseous)
CPT/HCPCS: 36415; 74022; 80053; 81002; 82150; 85025

== ENCOUNTER 2018-11-26 08:38 | Outpatient (CLI) | payer OTHER ==
[2018-11-26 09:19] LABS: BASOPHILS % 0.5 % (0.0-1.5); NEUTROPHILS # 2.2 # k/uL (1.4-7.7)
[2018-11-26 09:20] LABS: eGFR (Non-African) > 60
--- NOTE | 2018-11-26 10:44 | Diagnostic Imaging Report ---
JIMENEZ DUENAS [facility] [address] [facility] [address] [place], [place]. [address] Report Submission Date: Nov 26, 2018 10:37:01 AM CDT Patient Study Name: BHANU BACON Date: Nov 26, 2018 9:48:19 AM CDT Modality Type: CT\SR Gender: F Description: CT ABD/PELVIS W/C : [birth year]24[birth year] Institution: [facility] Physician: JIMENEZ DUENAS Exam: CT abdomen and pelvis with contrast. History: Left lower quadrant pain. Axial images through the abdomen and pelvis after IV infusion of 95 cc Omnipaque 350 is submitted along with sagittal and coronal reformatted images. The examination is compared to study dated February 25, 2018. The visualized lower lung prakash are clear. No free intraperitoneal air is identified. Surgical clips in the gallbladder fossa is again noted. The liver, spleen and pancreas appear normal in attenuation and enhancement without space-occupying lesion. The adrenal glands are normal configuration. The abdominal aorta is of normal caliber and associated with atherosclerotic plaque. No periaortic lymphadenopathy is noted. Both kidneys are normal attenuation and enhancement without hydronephrosis. The urinary bladder is partially distended without intrinsic filling defect. The small bowel is of normal caliber. Air and stool seen throughout the large intestine. No inflammatory changes in the mesentery or ascites is identified. There is redemonstration of postoperative changes in the lumbar spine. Impression: Previous cholecystectomy. No hydronephrosis or hydroureter. Nonspecific bowel gas pattern. No inflammatory changes in the mesentery or ascites is identified. Electronically signed on Nov 26, 2018 10:37:01 AM CDT by: Yuan FULTON
== END 2018-11-26 08:40 ==
LOC: RAD 08:38
PROVIDERS: ATTEND Family Medicine
DX: R10.32 Left lower quadrant pain (principal)
CPT/HCPCS: 36415; 74177; 80053; 83690; 85025; Q9967